=== PATIENT | female | born 1960 | race Caucasian/White ===

== ENCOUNTER → 2018-12-09 13:17 | Outpatient (CLI) | payer OTHER, SELFPAY ==
[2018-12-09 08:22] VITALS: BMI 33.7
[2018-12-14 13:48] LABS: HPV APTIMA, High Risk Negative (Negative)
== END ==
PROVIDERS: Family Provider Family Medicine; PCP Family Medicine; Referring Provider Nurse Practitioner Women's Health; Visit Provider Nurse Practitioner Women's Health
DX: R87.619 Unspecified abnormal cytological findings in specimens from cervix uteri (principal); B97.7 Papillomavirus as the cause of diseases classified elsewhere
CPT/HCPCS: 87624; 88175; G0145

== ENCOUNTER → 2018-12-29 07:38 | Outpatient (CLI) | payer OTHER, SELFPAY ==
[2018-12-09 08:22] VITALS: BMI 33.7
--- NOTE | 2018-12-29 07:00 | BI_ITS ---
MAMMOGRAPHY - BILATERAL SCREENING REASON FOR EXAM: Female, 58 years old. Routine annual screening examination. PERTINENT HISTORY: Non-contributory. TECHNIQUE: Digital bilateral breast ibrahima (3D mammographic acquisition) in the CC and MLO projections. 2-D mediolateral oblique (MLO) and craniocaudad (CC) views of both breasts were obtained. CAD: Full Field Digital Mammography with Computer Added Detection was performed. COMPARISON: Comparison is made with prior outside examination dated December 15, 2016. FINDINGS: Breast Composition: The breasts are heterogeneously dense, which may obscure small masses. There are no dominant masses or suspicious calcifications. A tissue clip marker is seen in the slightly inferior retroareolar region of the left breast. Stable small benign-appearing bilateral axillary lymph nodes. No other significant abnormalities are identified. There has been no significant change since the prior study. BI/SCREEN MAMM (CAD) W/IBRAHIMA BILAT IMPRESSION: Stable bilateral screening mammogram. Yearly follow-up mammogram recommended. (A) ASSESSMENT CATEGORY: BIRADS Category 2: Benign. A letter regarding these results will be sent to the patient by the facility within 30 days. Approximately 10% of breast cancers are not detected by mammography. A normal mammogram should not delay biopsy of a clinically suspicious abnormality. [id number] Electronically Signed: Casey Trent, at 12:58 EDT , Service support ,
== END ==
PROVIDERS: Family Provider Family Medicine; PCP Family Medicine; Referring Provider Nurse Practitioner Women's Health; Visit Provider Nurse Practitioner Women's Health
DX: Z12.31 Encounter for screening mammogram for malignant neoplasm of breast (principal)
CPT/HCPCS: 77063; 77067

== ENCOUNTER 2019-09-08 12:30 | Emergency (ER) | payer OTHER, SELFPAY ==
[2018-12-09 08:22] VITALS: BMI 33.7
[2019-09-08 12:31] VITALS: BP 147/97; PULSE 69; RESP 16; TEMP 36.1; O2SAT 98; BMI 33.6
--- NOTE | 2019-09-08 12:46 | EKG12_ITS ---
Test Reason : DIZZINESS Blood Pressure : / mmHG Vent. Rate : 068 BPM Atrial Rate : 068 BPM P-R Int : 204 ms QRS Dur : 084 ms QT Int : 466 ms P-R-T Axes : 069 044 053 degrees QTc Int : 495 ms Normal sinus rhythm Normal ECG Confirmed by JOSS ANDUJAR, MARINA ([id number]), map editor JEN URIBE ([id number]) on 09/13/2019 11:13:56 AM Referred By: YAYA Confirmed By:MARINA COREAS MD
--- NOTE | 2019-09-08 12:46 | CT_ITS ---
STUDY: CT BRAIN WITHOUT CONTRAST REASON FOR EXAM: Female, 59 years old. DIZZINESS/DIAPHORESIS/N/V RADIATION DOSAGE (If Supplied By Facility): CTDIvol = ( 44.99 ) mGy, DLP = ( 829.85 ) mGycm TECHNIQUE: Transaxial CT imaging of the brain was performed without administration of intravenous contrast material. Individualized dose optimization techniques were used for this CT. COMPARISON: 2010 FINDINGS: Normal soft tissue structures. Normal calvarium. Normal size ventricles and extra-axial spaces for the patient''s age. Normal white matter tracts of the cerebral hemispheres. Normal basal ganglia and thalami. Normal brainstem. Normal cerebellum. There is no intracranial hemorrhage. There are no findings of an acute ischemic infarction. Normal visualized paranasal sinuses. CT/Brain/Head without Contrast IMPRESSION: Chronic involutional changes of the brain. No acute hemorrhage Electronically Signed: Landry Alaniz MD at 13:53 EDT , Service support ,
--- NOTE | 2019-09-08 12:59 | ED.VIS.GEN ---
History of Present Illness Chief Complaint: Dizziness Informant: Patient Onset: Today Current Severity: Mild Maximum Severity: Mild Narrative: Patient presents with spinning sensation that began suddenly while she was at work. She has no past history she is on no medications other than Prozac she woke up feeling fine went to work feeling fine, no exposures to coronavirus, she works in housekeeping type activities no new exposures nothing really happened at work to trigger this the spinning sensation persisted she began vomiting and she came in for evaluation, No fever no cough no headache no numbness weakness paresthesias no loss of neurologic or functional ability Past Medical History - Allergies and Home Meds Allergies/Adverse Reactions: Allergies No Known Allergies Allergy (Verified 09/08/19 12:31) Primary Care Physician: Chirag Cam III, MD [Primary Care Provider] - Past Medical History: None Surgical History: no surgical history Smoking Status: Never smoker Review of Systems General: Denies: Chills, Fever, Sweats Eyes: Denies: Visual changes - bilaterally, Diplopia ENT: Denies: Rhinorrhea, Sore throat Cardiovascular: Denies: Chest pain, Palpitations Respiratory: Denies: Dyspnea, Cough, Dyspnea on exertion Gastrointestinal: Reports: Vomiting. Denies: Abdominal pain, Nausea, Diarrhea, Melena, Hematochezia Genitourinary: Denies: Dysuria, Hematuria, Frequency Musculoskeletal: Denies: Back pain, Extremity Pain Skin: Denies: Rash, Wounds Neurological: Reports: -. Denies: Headache, Weakness, Numbness Physical Exam Vital Signs/Narrative: Vital Signs Temp Pulse Resp BP Pulse Ox 09/08/19 12:31 96.9 F L 69 16 147/97 H 98 General: Well nourished, Well developed, No Acute Distress Head: Normocephalic, Atraumatic Eyes: Perrl, EOMI ENT: Moist mucous membranes, No rhinorrhea Neck: Supple, Nontender Cardiovascular: Regular rate, Regular rhythm, No murmurs Respiratory: No distress, CTA bilaterally, Chest nontender Abdomen: Soft, Nontender, Nondistended, Normal bowel sounds Back: Nontender, Normal Inspection Extremities: Nontender, No edema Skin: Normal color, No rash Neurological: Alert, Oriented x3, Cranial nerves II-XII grossly intact, Normal Strength, Normal Sensation Psychological: Normal affect, Normal Mood Diagnostic/Tx/Re-eval - Medical Decision Making Patient is awake and alert her vital signs are unremarkable her neurologic exam is unremarkable NIH is 0 she has no nystagmus moving her head left or right causes her to have more spinning sensation The patient's EKG shows a sinus rhythm rate of 70 no acute injury pattern appreciated, ED screening evaluation labs head CT all generally unremarkable see those reports nothing acute Reevaluation she states she feels much better she is no longer dizzy she can move her head and her body without a sense of spinning or dizziness we discussed a wide differential we discussed inpatient versus outpatient management she wants to go home she understands she will require additional studies as an outpatient further management options that she will obtain from outpatient providers and return for change in symptoms, we will discharge her on Antivert Home stable Impression final dizziness resolved etiology unclear ED Disposition - Plan for ED Patient: Instructions: ED Dizziness UKO Prescriptions: Meclizine HCl [Antivert] 25 mg PO 4X/DAY PRN PRN #20 tab PRN Reason: Dizziness Prescription Printed Referrals: Chirag Cam III, MD [Primary Care Provider] -
[2019-09-08 13:08] LABS: Absolute Lymphocyte Count 1.54 X10^3/uL (0.83-4.51); Absolute Neutrophil Count 4.1 X10^3/uL (2.0-7.7); Basophil# 0.05 X10^3/uL; Basophil% 0.8 % (0-1); Eosinophil# 0.16 X10^3/uL; Eosinophils% 2.5 % (0-5); Hematocrit 45.1 % (37-47); Hemoglobin 14.4 g/dL (12.0-15.0); Lymphocyte # 1.54 X10^3/ul (4.0); Mean Corp Hgb Conc 31.9 g/dL (32-36); Mean Corpuscular Hgb 29.1 pg (27.0-32.0); Mean Corpuscular Volume 91.3 fL (81-99); Mean Platelet Vol. 9.7 fl (6.2-12.0); Monocyte# 0.49 X10^3/uL; Monocyte% 7.6 % (0-10); NRBC Flagged by Analyzer 0 % (0-5); Neutrophil # 4.14 X10^3/uL (2.7-7.7); Neutrophil % 64.6 % (47-70); Platelet Count 250 K/mm3 (150-450); RBC Distribution Width CV 12.9 % (11.6-14.6); RBC Distribution Width SD 42.9 fl (35.1-43.9); Red Blood Count 4.94 M/mm3 (4.2-5.4); White Blood Count 6.4 K/mm3 (4.4-11.0)
[2019-09-08] MEDS: 0.9% Normal Saline 1,000 ML 150 ML IV (13:10)
[2019-09-08] MEDS: LORazepam 2 MG/ML Syringe 1 MG IV (13:10)
[2019-09-08] MEDS: Ondansetron 4 MG/2 ML Vial IV (13:10)
[2019-09-08 13:12] VITALS: BP 121/64; PULSE 55; RESP 15; O2SAT 100
[2019-09-08 13:20] LABS: Anion Gap 7 (5-15); BUN 19 mg/dL (7-18); BUN/Creat Ratio 21.7 RATIO (10-20); Calcium,Total 9.2 mg/dL (8.5-10.1); Chloride 104 mmol/L (98-107); Creatinine, Serum 0.88 mg/dL (0.55-1.02); EST Glomerular Filtration Rate 70 mL/min (>60); Est Glom Filt Rate - Afr Amer 85 mL/min (>60); Estimated Creatinine Clearance 56.24 ml/min; Glucose 165 mg/dL (74-106); Potassium 3.6 mmol/L (3.5-5.1); Sodium Level 140 mmol/L (136-145)
--- NOTE | 2019-09-08 13:21 | RAD_ITS ---
STUDY: X-RAY CHEST REASON FOR EXAM: Female, 59 years old. CHEST PAIN, DIZZINESS, DIAPHORETIC TECHNIQUE: Single AP portable view of the chest. COMPARISON: None. FINDINGS: EKG leads overlie the chest The lungs are clear and expanded. There is no demonstrated pleural abnormality. Normal size heart. Normal mediastinum and graham. Normal visualized pulmonary arteries. Normal visualized aortic arch and descending thoracic aorta. Normal visualized thoracic spine. Normal visualized ribs, clavicles, and shoulders. There is no demonstrated abnormality of the visualized soft tissue structures of the upper abdomen. RAD/Chest 1 View (Portable) IMPRESSION: No acute pulmonary process Electronically Signed: Landry Alaniz MD at 13:36 EDT , Service support ,
[2019-09-08 15:32] VITALS: BP 128/82; PULSE 64; RESP 16; O2SAT 99
--- NOTE | 2019-09-08 15:33 | ED.RN ---
REVIEWED D/C INSTRUCTIONS, FOLLOW UP CARE, PRESCRIPTION, AND S/S THAT WOULD WARRANT A RETURN TO THE ED WITH PT. PT VERBALIZED AN UNDERSTANDING AND DENIES FURTHER QUESTIONS FOR THIS RN. PT SKIN P/W/D, RESP EVEN AND UNLABORED, PT A&O X 3, NO DISTRESS NOTED. PT AMBULATED OUT OF ED, GAIT STEADY.
== END 2019-09-08 15:34 | disposition home or self-care (01) ==
LOC: ED 13:56
PROVIDERS: Emergency Provider Emergency Medicine; PCP Family Medicine
DX: R42 Dizziness and giddiness (principal); Z79.899 Other long term (current) drug therapy
CPT/HCPCS: 70450; 71045; 80048; 84484; 85025; 93005; 96361; 96374; 96375; 99284; J7030; J2405

== ENCOUNTER → 2020-01-09 13:43 | Outpatient (CLI) | payer OTHER, SELFPAY ==
[2020-01-09 13:10] VITALS: BMI 34.0
--- NOTE | 2020-01-09 13:44 | BI_ITS ---
MAMMOGRAPHY - BILATERAL SCREENING REASON FOR EXAM: Female, 59 years old. Routine annual screening examination. PERTINENT HISTORY: Non-contributory. TECHNIQUE: Digital bilateral breast ibrahima (3D mammographic acquisition) in the CC and MLO projections. 2-D mediolateral oblique (MLO) and craniocaudad (CC) views of both breasts were obtained. CAD: Full Field Digital Mammography with Computer Added Detection was performed. COMPARISON: Comparison is made with prior study dated 12/29/2018. FINDINGS: Breast Composition: The breasts are heterogeneously dense, which may obscure small masses. There are no dominant masses or suspicious calcifications. Stable small benign appearing bilateral axillary lymph nodes. A tissue clip marker is once again seen in the slightly inferior retroareolar region of the left breast. No other significant abnormalities are identified. BI/SCREEN MAMM (CAD) W/IBRAHIMA BILAT IMPRESSION: Stable bilateral screening mammogram. Yearly follow-up mammogram recommended. (A) ASSESSMENT CATEGORY: BIRADS Category 2: Benign. A letter regarding these results will be sent to the patient by the facility within 30 days. Approximately 10% of breast cancers are not detected by mammography. A normal mammogram should not delay biopsy of a clinically suspicious abnormality. [id number] Electronically Signed: Casey Trent, at 15:12 EDT , Service support ,
== END ==
PROVIDERS: PCP Family Medicine; Referring Provider Obstetrics & Gynecology; Visit Provider Obstetrics & Gynecology
DX: Z12.31 Encounter for screening mammogram for malignant neoplasm of breast (principal)
CPT/HCPCS: 77063; 77067

== ENCOUNTER 2020-02-19 11:21 | Emergency (ER) | payer OTHER, SELFPAY ==
[2020-01-09 13:10] VITALS: BMI 34.0
[2020-02-19 11:22] VITALS: BP 147/97; PULSE 72; RESP 16; TEMP 36.4; O2SAT 100; BMI 34.9
--- NOTE | 2020-02-19 11:34 | RAD_ITS ---
STUDY: X-RAY - UNILATERAL RIBS ( RIGHT ) WITH CHEST REASON FOR EXAM: Female, 59 years old. Right sided pain TECHNIQUE - RIBS: 5 view(s) of the ribs. TECHNIQUE - CHEST: Frontal view COMPARISON: 09/08/19 FINDINGS - RIBS: There are no displaced rib fractures identified. FINDINGS - CHEST: The lungs are clear. There are no pleural effusions. There is no pneumothorax. The heart is normal in size. RAD/Ribs Uni Min 3V w/PA Chest IMPRESSION: RIBS: No displaced rib fracture identified. CHEST: Clear lungs. Electronically Signed: Umair Grant, at 12:34 EST Tel , Service support ,
--- NOTE | 2020-02-19 11:34 | US_ITS ---
STUDY: ABDOMINAL ULTRASOUND - RIGHT UPPER QUADRANT REASON FOR VISIT: Female, 59 years old. Pain TECHNIQUE: Ultrasound evaluation of the right upper quadrant was performed with real-time and static pereyra-scale imaging. TECHNICAL QUALITY: Limited by bowel gas. COMPARISON: None. FINDINGS: Liver: The liver measures 12.4 cm. There is normal echogenicity of the liver. The bile ducts are within normal limits. There is hepatic color flow. The direction of portal flow is hepatopetal. There is a 7.5 x 5.4 x 5.1 cm heterogeneous lesion in the right lobe of the liver. Gallbladder: Normal distended gallbladder. The gallbladder wall measures 1 mm. There is a negative sonographic Galvan''s sign. There is no pericholecystic fluid. There are no gallstones. Common Bile Duct (C.B.D.): The common bile duct measures 10 mm. There are no ductal stones identified. Pancreas: Normal size of the head, body and tail of the pancreas. There is normal echogenicity of the pancreas. There is no demonstrated pancreatic mass or cyst. Right Kidney: Normal size of the right kidney. The right kidney measures 9.4 cm. Normal renal cortex. There is no demonstrated renal mass or cyst. There is no right hydronephrosis. US/Gallbladder IMPRESSION: 7.5 x 5.4 x 5.1 cm heterogeneous lesion in the right lobe of the liver. A liver protocol CT or MRI is recommended. Normal sonographic appearance of the gallbladder. Dilated common bile duct. No ductal stones are identified. Electronically Signed: Umair Grant, at 13:04 EST Tel , Service support ,
--- NOTE | 2020-02-19 11:36 | ED.DCSUM_ITS ---
- ER Visit Summary Date of Service: 02/19/20 Chief Complaint: Pain under right ribs History of Present Illness: The patient is a 59 F presenting with pain under her right ribs. She states that this has been ongoing for the past 2 months. She states she fell in December and is unsure if this is related. She states occasionally the pain is worsened when she reaches for things or moves in different positions. She states it is also worsened when she eats. She denies nausea vomiting. Denies fever. Denies other complaints. Physical Examination: Vitals are stable. Patient is afebrile. Alert no acute distress. HEENT exam is unremarkable. Neck is supple. Lungs are clear and equal bilaterally. Right lower chest wall tenderness with no crepitus Heart is regular rate and rhythm. Abdomen is soft right upper quadrant tenderness with no guarding or rebound Extremities are unremarkable. Skin is warm and dry. No focal neurologic deficit. Remainder of exam is unremarkable. Emergency Department Course and Treatment: CBC, chemistries unremarkable. Liver lipase are normal. Right rib x-ray shows RIBS: No displaced rib fracture identified. CHEST: Clear lungs. Gallbladder ultrasound shows 7.5 x 5.4 x 5.1 cm heterogeneous lesion in the right lobe of the liver. A liver protocol CT or MRI is recommended. Normal sonographic appearance of the gallbladder. Dilated common bile duct. No ductal stones are identified. Patient is advised of these findings. She has a known hemangioma of her liver and has a specialist at [facility] for this. She is advised to follow-up with her specialist at [facility]. Advised return to ED for worsening complaints. Disposition: Discharge home Impression: Right upper quadrant abdominal pain This note was generated with [employer] dictation software. It may contain incorrect words, spelling, and punctuation that were not noted in review of the chart prior to signing ED Disposition - Plan for ED Patient: Instructions: ED Unknown Causes of Abdominal ... Referrals: Chirag Cam III, MD [Primary Care Provider] -
[2020-02-19 12:00] LABS: Absolute Lymphocyte Count 1.56 X10^3/uL (0.83-4.51); Absolute Neutrophil Count 2.9 X10^3/uL (2.0-7.7); Basophil# 0.05 X10^3/uL; Eosinophil# 0.17 X10^3/uL; Eosinophils% 3.3 % (0-5); Hematocrit 44.7 % (37-47); Hemoglobin 14.4 g/dL (12.0-15.0); Lymphocyte # 1.56 X10^3/ul (4.0); Lymphocyte % 30.2 % (19-41); Mean Corp Hgb Conc 32.2 g/dL (32-36); Mean Corpuscular Hgb 28.6 pg (27.0-32.0); Mean Corpuscular Volume 88.9 fL (81-99); Mean Platelet Vol. 9.3 fl (6.2-12.0); Monocyte# 0.48 X10^3/uL; Monocyte% 9.3 % (0-10); NRBC Flagged by Analyzer 0 % (0-5); Neutrophil # 2.88 X10^3/uL (2.7-7.7); Neutrophil % 55.8 % (47-70); Platelet Count 269 K/mm3 (150-450); RBC Distribution Width CV 13.2 % (11.6-14.6); RBC Distribution Width SD 43.2 fl (35.1-43.9); Red Blood Count 5.03 M/mm3 (4.2-5.4); White Blood Count 5.2 K/mm3 (4.4-11.0)
[2020-02-19 12:10] LABS: ALB/GLOB Ratio 1.2 RATIO (0.9-2.4); AST(SGOT) 16 U/L (15-37); Alanine Aminotransfer ALT/SGPT 22 U/L (13-56); Alkaline Phosphatase 87 U/L (45-117); Anion Gap 7 (5-15); BUN 16 mg/dL (7-18); BUN/Creat Ratio 16.8 RATIO (10-20); Calcium,Total 8.9 mg/dL (8.5-10.1); Chloride 106 mmol/L (98-107); Creatinine, Serum 0.95 mg/dL (0.55-1.02); EST Glomerular Filtration Rate 64 mL/min (>60); Est Glom Filt Rate - Afr Amer 77 mL/min (>60); Estimated Creatinine Clearance 52.09 ml/min; Globulin 3.4 g/dL (2.2-4.2); Glucose 90 mg/dL (74-106); Lipase 167 U/L (73-393); Potassium 3.3 mmol/L (3.5-5.1); Protein, Total 7.4 g/dL (6.4-8.2); Sodium Level 142 mmol/L (136-145)
--- NOTE | 2020-02-19 13:28 | ED.DEP ---
ED Disposition - Plan for ED Patient: Instructions: ED Unknown Causes of Abdominal ... Referrals: Chirag Cam III, MD [Primary Care Provider] -
--- NOTE | 2020-02-19 13:36 | ED.DEP ---
ED Disposition - Plan for ED Patient: Instructions: ED Abdominal Pain Unkn Cause Fem Referrals: Chirag Cam III, MD [Primary Care Provider] -
[2020-02-19 13:44] VITALS: BP 130/90; PULSE 87; RESP 16; O2SAT 99
== END 2020-02-19 13:45 | disposition home or self-care (01) ==
LOC: ED 12:57
PROVIDERS: Emergency Provider Emergency Medicine; PCP Family Medicine
DX: R10.11 Right upper quadrant pain (principal); D18.03 Hemangioma of intra-abdominal structures; Z79.899 Other long term (current) drug therapy
CPT/HCPCS: 71101; 76705; 80053; 83690; 85025; 99283; A4216

== ENCOUNTER 2020-03-12 13:50 | Outpatient (RCR) | payer OTHER, SELFPAY | END 2020-03-15 23:59 | LOC: LABSPEC 13:50 | PROVIDERS: PCP Family Medicine; Referring Provider Family Medicine; Visit Provider Family Medicine | DX: Z20.828 Contact with and (suspected) exposure to other viral communicable diseases (principal) | CPT/HCPCS: 87635; U0003 ==

== ENCOUNTER → 2021-01-17 08:57 | Outpatient (CLI) | payer OTHER, SELFPAY ==
--- NOTE | 2021-01-17 09:01 | BI_ITS ---
MAMMOGRAPHY - BILATERAL SCREENING REASON FOR EXAM: Female, 60 years old. Routine annual screening examination. PERTINENT HISTORY: Non-contributory. TECHNIQUE: Digital bilateral breast ibrahima (3D mammographic acquisition) in the CC and MLO projections. 2-D mediolateral oblique (MLO) and craniocaudad (CC) views of both breasts were obtained. CAD: Full Field Digital Mammography with Computer Added Detection was performed. COMPARISON: Comparison is made with prior study dated 01/09/2020 and 12/29/2018. FINDINGS: Breast Composition: The breasts are heterogeneously dense, which may obscure small masses. There are no dominant masses or suspicious calcifications. Stable small benign appearing bilateral axillary lymph nodes. No other significant abnormalities are identified. There has been no significant change since the prior study. BI/SCRN MAMM (CAD)W/IBRAHIMA BILAT IMPRESSION: Stable bilateral screening mammogram. Yearly follow-up mammogram recommended. (A) ASSESSMENT CATEGORY: BIRADS Category 2: Benign. A letter regarding these results will be sent to the patient by the facility within 30 days. Approximately 10% of breast cancers are not detected by mammography. A normal mammogram should not delay biopsy of a clinically suspicious abnormality. [id number] Electronically Signed: Casey Trent MD at 10:07 EDT , Service support ,
[2021-01-22 12:05] LABS: HPV APTIMA, High Risk Negative (Negative)
== END ==
PROVIDERS: PCP Family Medicine; Referring Provider Obstetrics & Gynecology; Visit Provider Obstetrics & Gynecology
DX: Z12.31 Encounter for screening mammogram for malignant neoplasm of breast (principal); Z78.0 Asymptomatic menopausal state
CPT/HCPCS: 77063; 77067; 87624; 88175; G0145

== ENCOUNTER 2021-05-03 14:45 | Observation (INO) | payer OTHER, SELFPAY ==
--- NOTE | 2021-04-30 13:34 | EKG12_ITS ---
Test Reason : PREOP Blood Pressure : / mmHG Vent. Rate : 075 BPM Atrial Rate : 075 BPM P-R Int : 188 ms QRS Dur : 074 ms QT Int : 378 ms P-R-T Axes : 065 031 068 degrees QTc Int : 422 ms Normal sinus rhythm Poor R wave progression Nonspecific T wave abnormality Confirmed by JOSS ANDUJAR, MARINA ([id number]), editor publications JEN URIBE ([id number]) on 05/01/2021 11:48:50 AM Referred By: Ashley Boykin Confirmed By:MARINA COREAS MD
[2021-04-30 15:19] LABS: Hematocrit 41.5 % (37-47); Hemoglobin 13.5 g/dL (12.0-15.0); Mean Corp Hgb Conc 32.5 g/dL (32-36); Mean Corpuscular Volume 89.1 fL (81-99); Mean Platelet Vol. 9.8 fl (6.2-12.0); Platelet Count 273 K/mm3 (150-450); RBC Distribution Width SD 45.1 fl (35.1-43.9); Red Blood Count 4.66 M/mm3 (4.2-5.4); White Blood Count 5.7 K/mm3 (4.4-11.0)
[2021-04-30 16:14] LABS: Magnesium 2.4 mg/dL (1.6-2.6)
[2021-04-30 16:16] LABS: ALB/GLOB Ratio 1.2 RATIO (0.9-2.4); AST(SGOT) 24 U/L (15-37); Alanine Aminotransfer ALT/SGPT 19 U/L (13-56); Albumin, Serum 3.8 g/dL (3.2-5.0); Alkaline Phosphatase 71 U/L (45-117); Anion Gap 4 (5-15); BUN 14 mg/dL (7-18); BUN/Creat Ratio 16.1 RATIO (10-20); Calcium,Total 8.9 mg/dL (8.5-10.1); Chloride 109 mmol/L (98-107); Creatinine, Serum 0.87 mg/dL (0.55-1.02); EST Glomerular Filtration Rate 70 mL/min (>60); Est Glom Filt Rate - Afr Amer 85 mL/min (>60); Globulin 3.2 g/dL (2.2-4.2); Glucose 79 mg/dL (74-106); Potassium 3.6 mmol/L (3.5-5.1); Sodium Level 141 mmol/L (136-145)
[2021-05-03] VITALS (15 sets, daily range): BP systolic 80–155; BP diastolic 49–86; PULSE 56–84; RESP 14–20; TEMP 36–37; O2SAT 95–100; BMI 33.8
[2021-05-03] MEDS: Lactated Ringers 1,000 ML 40 ML IV (06:05)
[2021-05-03] MEDS: dexAMETHasone 10 MG/ML Vial 8 MG IV (06:05)
[2021-05-03] MEDS: Enoxaparin 40 MG/0.4 ML Syringe SC (06:15)
[2021-05-03] MEDS: Acetaminophen 500 MG Tablet 1000 MG PO ×2 (06:27→22:14)
[2021-05-03] MEDS: Celecoxib 200 MG Capsule 400 MG PO (06:28)
[2021-05-03] MEDS: Gabapentin 600 MG Tablet PO (06:28)
--- NOTE | 2021-05-03 07:30 | HYST_PTH ---
PATIENT: GEORGE BURLESON LOC: [facility]3 U#:[id number] AGE/SX: 60/F ROOM: MS318 RE05/03/[address]: Dr. Ashley Boykin MD : 1960 BED: 1 DIS: 05/04/2021 SPEC #: [id number] RECD: 05/03/21 11:32 STATUS: LIYAH ZACARIAS #: [id number] CARA: 05/03/21 07:[address]: Ashley Boykin DEPT: SURGICAL PATHOLOGY RECD BY: Kavon Russ ENTERED: 05/03/21 13:09 SP TYPE: HYSTERECT OTHR DR: Dr. Julisa Guerra MD No Primary Care Phys Tissues: A - Uterus, NOS B - CYST Procedures: Surgery Specimen Level IV Surgery Specimen Level V HEADER OPERATION: ERAS, vaginal hysterectomy, right salpingectomy PRE-OP DIAGNOSIS: Cystocele and rectocele with incomplete uterovaginal prolapse TISSUE SUBMITTED: A ? Cervix, uterus, right fallopian tube, B ? Periurethral cyst MICROSCOPIC DIAGNOSIS A. Cervix, uterus, right fallopian tube, vaginal hysterectomy and right salpingectomy: Cervix ? mild chronic cystic cervicitis. Endometrium ? proliferative endometrium with focal cystic changes. Myometrium ? leiomyomas (largest measuring 5 cm in greatest dimension). - Adenomyosis. Right fallopian tube - no pathologic diagnosis. B. Periurethral cyst: A piece of fibrovascular tissue. See comment. SJ:mega 05/07/2021 COMMENT B. No obvious cyst is identified. MICROSCOPIC DESCRIPTION Slides are reviewed. GROSS DESCRIPTION A - Received in fixative is one container labeled with the patient's name and designated cervix, uterus, right fallopian tube. The specimen consists of a hysterectomy specimen consisting of uterus with cervix, two detached nodular masses and detached fallopian tube. The uterus with cervix and detached nodular masses weigh in aggregate 189 gm. The uterus with cervix measures 9.5 x 5 x 6.5 cm. The anterior and posterior uterine wall shows a focal area of defect most likely site of detached nodular masses. The serosal surface is mason, glistening. The ectocervical mucosa is unremarkable. The external os is circular in contour. The endocervical canal measures 3.5 cm in length and the endocervical mucosa is mason, glistening without any mass lesion. The triangular endometrial cavity measures 4.5 cm in length and 2 cm in width. The endometrium is mason, glistening without any mass lesion and measures 0.1 cm in thickness. Sections of the uterine wall reveal two ill-defined nodular masses with the larger one measuring 1.5 cm in greatest dimension. The detached nodular masses measures 5 x 4.5 x 4 cm and 5 x 4.5 x 3.5 cm. Sections of these masses reveal mason whorled cut surfaces without areas of hemorrhage, necrosis or cystic degeneration. The uninvolved uterine wall measures up to 3 cm in thickness. One of the nodular masses display focally calcified cut surfaces. The detached fallopian tube measures 4 cm in length and 0.5 cm in diameter. Two Filshie clips are present and appear intact. A detached piece of fimbrial end is also noted measuring 1 x 0.5 x 0.2 cm. Map Colorer sections are submitted in ten cassettes as follows: 1 - anterior cervix, 2 - posterior cervix, 3 & 4 - anterior uterine wall, 5 & 6 - posterior uterine wall, 7 - ill-defined nodular masses, 8 & 9 - detached nodular masses with each cassette containing one nodular mass, 10 - fallopian tube. B - Received in fixative is one container labeled with the patient's name and designated periurethral cyst. The specimen consists of a piece of mason-pink soft tissue measuring 1 x 0.5 x 0.3 cm. The entire specimen is submitted in one cassette. / SJ:meag 05/03/2021 TC:1 CPT: 66426, 98855
--- NOTE | 2021-05-03 07:31 | HP.PCM.OB_ITS ---
HPI - General HPI Narrative GEORGE BURLESON, is a 60 F who presents for hysterectomy for pelvic organ prolapse, planned combo case with Dr Guerra. she has failed PFPT in the past and a pessary and is ready to proceed with surgical management. [facility] Medical History (Updated 05/03/21 @ 07:[address] Ashley Boykin MD) Abnormal Pap smear of cervix Anxiety Arthritis Back pain Bladder disease COVID Depression Diverticulitis Hypertension Leg cramps Non-smoker Post-menopausal Shortness of breath on exertion Wears glasses Home Medications fluoxetine 20 mg PO DAILY 12/26/16 [History Last Taken Unknown] hydrochlorothiazide 12.5 mg PO DAILY 12/26/16 [History Last Taken Unknown] estradiol [Estrace] 0.1 appful VAGINAL MOWEFR 04/26/21 [History Last Taken Unknown] Allergy/AdvReac Type Severity Reaction Status Date / Time No Known Allergies Allergy Verified 05/03/21 06:18 Family History Father Cancer blood Uncle Cancer leukemia Surgical History (Updated 04/26/21 @ 13:05 by Alicia Crowley) Hx of colectomy Hx of colonoscopy Trigger finger Social History (Updated 01/17/21 @ 08:25 by Vivi Moreno) Smoking Status: Never smoker alcohol intake: never substance use type: does not use caffeine: Yes what type of physical activity do you participate in: walking frequency: 3-4 times per week seatbelt use: always do you feel safe at home: Yes additional social history: Danilo- in August 2020 at Hospice Patient works at [employer] History 3 Elective abortions Hx Para 3 Spontaneous abortions Hx # Term Pregnancies Ectopic pregnancies Hx # Pregnancies Multiple births 1 # of living children Past Pregnancies Del. Date Name GA/Weeks Outcome Route Bth Weight Gen Labor Lgth Anesthesia Del Locatn Provider FOB Unknown 1985 Gaby Unknown 1989 Bela LORENZO Review of Systems ROS Unobtainable: due to mental status and other Constitutional Constitutional: Reports systems reviewed and no addt'l complaints, except as documented; Denies as per HPI, change in weight, fatigue, fever(s), malaise, weakness or other Eyes Eyes: Reports systems reviewed and no addt'l complaints, except as documented; Denies as per HPI, change in vision or other ENT HEENT: Reports systems reviewed and no addt'l complaints, except as documented Respiratory/Chest Respiratory/Chest: Reports systems reviewed and no addt'l complaints, except as documented Gastrointestinal Gastrointestinal: Reports systems reviewed and no addt'l complaints, except as documented and as per HPI Genitourinary Genitourinary: Reports as per HPI Musculoskeletal Musculoskeletal: Reports systems reviewed and no addt'l complaints, except as documented Neurologic Neurologic: Reports systems reviewed and no addt'l complaints, except as documented Psychiatric Psychiatric: Reports systems reviewed and no addt'l complaints, except as documented Endocrine Endocrinology: Reports systems reviewed and no addt'l complaints, except as documented Hematologic/Lymphatic Hematologic/Lymphatic: Reports systems reviewed and no addt'l complaints, except as documented Vital Signs Vital Signs Vital Signs: 05/03/21 06:05 Temperature 97.8 F Temperature Source Temporal Pulse Rate 74 Respiratory Rate 18 Respiratory Pattern Normal Blood Pressure 129/81 H Blood Pressure Mean 97 Blood Pressure Source Monitor Blood Pressure Position Sitting Blood Pressure Location Right Arm Pulse Ox 100 Oxygen Delivery Method Room Air Weight Weight: 197 lb 5.019 oz Body Mass Index (BMI) 33.8 Physical Exam Const alert, oriented x3 and no apparent distress HEENT normocephalic Head and Scalp: atraumatic Eyes EOMs intact bilaterally and conjunctivae normal Neck full ROM, no lymphadenopathy, supple and thyroid normal General: trachea midline Lymph Lymphatic: no lymphadenopathy noted Resp normal respiratory effort, no retractions, no use of accessory muscles and clear to auscultation bilaterally Cardio regular rhythm GI normal to inspection, nondistended, normoactive bowel sounds, soft to palpation, non-distended and no masses Inspection: Negative for abdominal distention Back/Spine no CVA tenderness Extremity normal to inspection Skin no rashes or lesions noted Neuro moves all extremities and deep tendon reflexes 2+ bilaterally Psych mental status grossly normal Labs Labs Labs: Blood Type O POSITIVE Antibody Screen NEGATIVE Hct 41.5 % (37-47) Hgb 13.5 g/dL (12.0-15.0) Pap Smear Positive Miscellaneous Test Assessment & Plan (1) Cystocele and rectocele with incomplete uterovaginal prolapse: COMMENT: discussed PFPT, pessary, and plan for surgery TVHBSO combo case with Charlie. PLAN: After discussing the patient's diagnosis and treatment plan options, patient wishes to proceed with surgical management. I have discussed with the patient the risks, benefits, and alternatives of the procedure which include but are not limited to risks of anesthesia, bleeding, infection, possible damage to bowel, bladder, or surrounding vasculature which could lead to additional surgery to evaluate any complications. Patient agrees to procedure and wishes to proceed. ACOG/uptodate references given for additional information regarding procedure.
[2021-05-03] MEDS: Cefazolin 2 GM in 0.9% Normal Saline 100 ML IV (07:34)
--- NOTE | 2021-05-03 07:38 | OP.PCM_ITS ---
Problems Associated Problem List Diagnoses (1) Cystocele and rectocele with incomplete uterovaginal prolapse: Report of Operation Date of Procedure: 05/03/21 Pre-Operative Diagnosis: pelvic organ prolapse Post-Operative Diagnosis: same Surgery/Procedure Performed:: tvh rs Description of Surgical Findings:: left adnexal adhesions minimal cul de sac left sided adhesions physical meteorologist: Norberto Leos Type of Anesthesia: General Specimen's removed: uterus, tube right Drains: valentin Estimated Blood Loss (mL): 100 Fluids Replaced: crystalloid Description of Procedure: Patient was taken to the operating room and was placed under general anesthesia was prepped and draped in normal sterile fashion in the dorsal lithotomy position. Preoperative antibiotics and SCDs and Valentin catheter was placed inside the bladder. Weighted speculum was placed in the vagina and the anterior and posterior lip of the cervix was grasped with 2 Usmmer clamps and circumferentially injected with dilute vasopressin. A circumferential incision was made with a scalpel and the posterior cul-de-sac was entered into sharply and a longneck speculum was placed. small filmy adhesions encountered and taken down bluntly and sharply on the left side of the cul de sac without complication. The anterior cul-de-sac was also dissected down and entered into sharply and the uterosacral ligaments were clamped cut and suture ligated bilaterally followed by the cardinal ligaments which were Clamped cut and suture ligated bilaterally with 0 Monocryl. The uterus serially descended and progressive bites were taken bilaterally up to the level of the utero-ovarian ligament bilaterally which was clamped transected and double ligated with 0 Monocryl suture and 0 Vicryl free tie. multiple fiboirds encountered but were small and removed along with uterus. Bilateral fallopian tubes and ovaries were visualized and noted be within normal limits although the left tube and ovary were encased in dense adhesions on the left side so were not removed. the right ovary was outside of the safe reach of the operative field and also left in situ. the right tube transected with the eugenia clamp and tied off with an o vicryl tie. Excellent hemostasis was noted. The vagina was closed with [id number] 0 Vicryl pop offs including the posterior and anterior peritoneum in the reapproximation. Excellent hemostasis was noted. Then Dr. Guerra began her portion of the procedure. Grafts/Implants Used: none Complications none Admit VTE Documentation VTE Present on Admission: No VTE Mechan Device Prophylaxis: SCD's VTE Pharm Prophylaxis ordered?: Yes Multi Select Codes Urinary/Genital Urinary/Genital CPT Codes: 46818 TVH+BS/O <250gr uterus
--- NOTE | 2021-05-03 07:44 | PCM.DC ---
Discharge Instructions Diet Discharge Diet: No restrictions Activity Discharge Activity: Return to Normal Activity, May Not Drive (while taking narcotic pain medications.) and May Shower May resume sexual activity in: 6-8 weeks Dressing / Incision Call your doctor if your incision/area has: Continuous Slow Oozing, Sudden Increased Bleeding, Increased Pain/ Swelling, Increased Redness and Foul Smelling Discharge Call your doctor if you observe: Fever of 101 or Higher, Inability to urinate, Inability to have a bowel movement and Using more than 1 pad per hour Follow Up Care Please Follow Up With: Ashley Boykin MD Test Results: Test results from this visit will be discussed in further detail at your follow-up appointment, if applicable. Discharge Plan Admission Attending Provider: Ashley Boykin Primary Care Provider: Care Physician,No Primary Consulting Providers: Julisa Guerra Discharge Orders/Prescriptions Prescriptions: No Action hydrochlorothiazide 12.5 MG capsule 12.5 mg PO DAILY RF: 0 fluoxetine 20 MG capsule 20 mg PO DAILY RF: 0 estradiol [Estrace] 0.01 % (0.1 mg/gram) cream 0.1 appful vaginal MOWEFR RF: 0
[2021-05-03] MEDS: Vasopressin 20 UNITS/ML Vial (07:55)
--- NOTE | 2021-05-03 08:27 | PCM.OPRPT ---
Problems Associated Problem List Diagnoses (1) Cystocele and rectocele with incomplete uterovaginal prolapse: (2) Urethral cyst: Report of Operation Date of Procedure: 05/03/21 Pre-Operative Diagnosis: incomplete uterovaginal prolapse, periurethral cyst Post-Operative Diagnosis: same Surgery/Procedure Performed:: anterior and posterior repair, right sacrospinous ligament fixation, excision periurethral cyst, cystoscopy with bilateral ureteral catheterization Surgeon: Julisa Guerra Type of Anesthesia: General Specimen's removed: none Estimated Blood Loss (mL): 25cc Description of Procedure: The patient is a 60-year-old female with pelvic organ prolapse who presents for definitive surgical intervention. She was also found to have a periurethral cyst on evaluation. She has undergone cystoscopy and urodynamics preoperatively. Informed consent was obtained. The patient was taken to the operating room and placed on the operating table. Anesthesia monitored the head, neck, airway, IV access and vital signs throughout the case. Once anesthesia was appropriate ministered the patient was placed into dorsal lithotomy in Trendelenburg position. A Perez catheter was inserted and the bladder was continuously drained. Dr. Den Collins proceeded with her portion of the case and close the vaginal cuff. At this time turned my attention to the anterior vaginal wall which was isolated and injected submucosally with vasopressin for hydrostatic dissection and hemostatic control. A vertical midline incision was made through the vaginal mucosa in full-thickness fashion. Dissection was performed on the right side until the sacrospinous ligament was identified and freed from surrounding tissues. The Capio device was then used to pass a Ethibond suture through the right sacrospinous ligament which was then brought through the vaginal mucosa at the apex. The pubocervical fascia was then brought together in a 2 layer closure with 2-0 Vicryl interrupted sutures. At this time the vaginal mucosal incision was closed using running interlocking 2-0 Vicryl and the Ethibond suture was tied into position effectively reducing the prolapse. A posterior defect was appreciated at this time. The submucosa was injected posteriorly with vasopressin for hydrostatic dissection and hemostatic control. A midline incision was made. Dissection ensued mainly on the right side and continued until the sacrospinous ligament was identified and freed from surrounding tissues. The Jeremías device was used to pass an Ethibond suture through the ligament and was then brought through the full-thickness vaginal mucosa at the apex. The rectovaginal fascia was then brought together in a 2 layer repair fixing the rectocele defect. The vaginal mucosa was then closed with running interlocking 2-0 Vicryl. The Perez catheter was then removed and a cystourethroscopy was performed through the urethra under direct visualization revealing no injury to the urethra. Bilateral ureteral orifices were intact. There were no injuries or abnormalities of the bladder mucosa identified. Each ureteral orifice was intubated with a 5 Wallisian whistle-tip catheter and easily inserted to 20 cm without evidence of obstruction or hemorrhage. This time the cystoscope was removed and the Perez catheter was replaced 10 cc in the Perez balloon. The submucosa overlying the periurethral cyst was injected also with vasopressin. An incision was made in the mucosa and the cyst was dissected from the surrounding tissues. There is no visible connection with the urethra. Following removal of the cyst, hemostasis was evident and the mucosa was closed using running interlocking 2-0 Vicryl. The patient was packed with vaginal packing and Premarin cream and was awakened and taken to the recovery room in good condition. There were no complications during this procedure. Complications None Admit VTE Documentation VTE Present on Admission: Yes VTE Mechan Device Prophylaxis: SCD's VTE Pharm Prophylaxis ordered?: Yes
--- NOTE | 2021-05-03 08:29 | PCM.DC ---
Discharge Instructions Diet Discharge Diet: No restrictions Activity Discharge Activity: May Shower May resume sexual activity in: 8 weeks Lifting Restrictions: 5 pounds Additional Activity Instructions:: No strenuous activity, no swimming, hot tubs or tub bathing, no sexual activity Dressing / Incision Call your doctor if your incision/area has: Continuous Slow Oozing, Sudden Increased Bleeding, Increased Pain/ Swelling, Increased Redness and Foul Smelling Discharge Call your doctor if you observe: Fever of 101 or Higher, Inability to urinate, Inability to have a bowel movement and Using more than 1 pad per hour Additional Dressing/Incision Instructions:: Continue vaginal estrogen cream Follow Up Care Please Follow Up With: Ashley Boykin MD When: Charlie in 2 weeks Test Results: Test results from this visit will be discussed in further detail at your follow-up appointment, if applicable. Discharge Plan Admission Primary Reason for Your Visit: hysterectomy Attending Provider: Ashley Boykin Primary Care Provider: Care Physician,No Primary Consulting Providers: Julisa Guerra Discharge Orders/Prescriptions Prescriptions: New oxycodone-acetaminophen [Percocet] 5-325 mg tablet 1 tab PO Q6H PRN (Reason: pain) 7 Days Qty: 20 RF: 0 naproxen [naproxen] 500 MG tablet 500 mg PO BID PRN PRN (Reason: Pain) Qty: 30 RF: 1 cephalexin [cephalexin] 500 MG capsule 500 mg PO Q12 3 Days Qty: 6 RF: 0 Continued hydrochlorothiazide 12.5 MG capsule 12.5 mg PO DAILY RF: 0 fluoxetine 20 MG capsule 20 mg PO DAILY RF: 0 estradiol [Estrace] 0.01 % (0.1 mg/gram) cream 0.1 appful vaginal MOWEFR RF: 0 Referrals / Follow Up: Care Physician,No Primary [Primary Care Provider] -
[2021-05-03] MEDS: Ondansetron 4 MG/2 ML Vial IV (09:15)
[2021-05-03] MEDS: Estrogens,Conj. 1 Tube 1 DOSE (10:15)
[2021-05-03] MEDS: Ketorolac 30 MG/ML Syringe IV ×2 (11:56→18:03)
[2021-05-03] MEDS: Lactated Ringers 1,000 ML 70 ML IV (19:50)
[2021-05-03] MEDS: Docusate Sodium 100 MG Capsule PO (22:14)
[2021-05-04] VITALS (9 sets, daily range): BP systolic 128–167; BP diastolic 60–82; PULSE 63–74; RESP 16–18; TEMP 36.7–37; O2SAT 94–99
[2021-05-04] MEDS: Ketorolac 30 MG/ML Syringe IV ×3 (00:24→13:04)
--- NOTE | 2021-05-04 05:32 | PCM.PN.OB ---
Subjective Subjective Patient doing well without complaints. Tolerating PO. Ambulating without difficulty. Denies chest pain, shortness of breath, calf pain/swelling, fevers, chills, lightheadedness. Objective Data Objective Data Vital Signs: Vital Signs Temp Pulse Resp BP Pulse Ox 98.1 F 73 18 138/82 H 95 05/04/21 00:28 05/04/21 01:02 05/04/21 00:28 05/04/21 00:28 05/04/21 01:02 Oxygen Flow Rate (L/min) 4 Oxygen Delivery Method Room Air Weight: 197 lb 5.019 oz Body Mass Index (BMI) 33.8 Intake & Output: Intake and Output for Last 24 Hours 05/02/21 05/03/21 05/04/21 23:59 23:59 23:59 Intake Total 2816.17 / 2816.17 Output Total 1150 / 1450 300 / 300 Balance 1666.17 / 1366.17 -300 / -300 Lab / Micro Data Result Diagrams: 04/30/21 13:50 04/30/21 13:50 ROS Constitutional Constitutional: Reports systems reviewed and no addt'l complaints, except as documented Cardiovascular Cardiovascular: Reports systems reviewed and no addt'l complaints, except as documented Respiratory/Chest Respiratory/Chest: Reports systems reviewed and no addt'l complaints, except as documented Gastrointestinal Gastrointestinal: Reports systems reviewed and no addt'l complaints, except as documented Physical Exam Const alert, oriented x3 and no apparent distress HEENT Head and Scalp: atraumatic Resp normal respiratory effort GI soft to palpation and non-tender Assessment & Plan (1) History of total vaginal hysterectomy (TVH): COMMENT: combo case with gladys PLAN: patient is s/p tvhrs POD 1 1. routine ERAS protocol postop care- increase ambulation, encourage oral intake and oral control of pain. lovenox and scds for dvt prophylaxis, patient stable for discharge to home.
[2021-05-04] MEDS: Acetaminophen 500 MG Tablet 1000 MG PO ×2 (05:57→13:04)
[2021-05-04 06:15] LABS: Hematocrit 37.1 % (37-47); Hemoglobin 12.5 g/dL (12.0-15.0); Mean Corp Hgb Conc 33.7 g/dL (32-36); Mean Corpuscular Hgb 29.5 pg (27.0-32.0); Mean Corpuscular Volume 87.5 fL (81-99); Mean Platelet Vol. 9.9 fl (6.2-12.0); Platelet Count 225 K/mm3 (150-450); RBC Distribution Width CV 14.1 % (11.6-14.6); RBC Distribution Width SD 45.5 fl (35.1-43.9); Red Blood Count 4.24 M/mm3 (4.2-5.4); White Blood Count 11.3 K/mm3 (4.4-11.0)
--- NOTE | 2021-05-04 09:33 | PN.URO_ITS ---
Subjective Subjective Up in chair, walking and tolerating PO intake. Is feeling bloated and not passing gas yet. Objective Data Objective Data Vital Signs: Vital Signs Temp Pulse Resp BP Pulse Ox 98.6 F 68 16 137/74 H 96 05/04/21 07:54 05/04/21 07:54 05/04/21 07:56 05/04/21 07:54 05/04/21 07:54 Oxygen Flow Rate (L/min) 4 Oxygen Delivery Method Room Air Weight: 89.5 kg Body Mass Index (BMI) 33.8 Intake & Output: Intake and Output for Last 24 Hours 05/02/21 05/03/21 05/04/21 23:59 23:59 23:59 Intake Total 2816.17 / 2816.17 Output Total 1150 / 1450 650 / 650 Balance 1666.17 / 1366.17 -650 / -650 Lab / Micro Data Result Diagrams: 05/04/21 05:39 04/30/21 13:50 Labs: Laboratory Results - last 24 hr 05/04/21 05:39: WBC 11.3 H, RBC 4.24, Hgb 12.5, Hct 37.1, MCV 87.5, MCH 29.5, M CHC 33.7, RDW Std Deviation 45.5 H, RDW Coeff of Jaylyn 14.1, Plt Count 225, MPV 9.9 Physical Exam Const alert, oriented x3 and no apparent distress Resp normal respiratory effort, normal air movement, no retractions and no use of accessory muscles Cardio regular rate and regular rhythm GI soft to palpation and non-tender Narrative: urine clear yellow in valentin, valentin and packing removed without difficulty Skin no rashes or lesions noted, no wounds, skin turgor normal, no jaundice, no petechiae and no mottling Neuro oriented x3, CN's II-XII intact bilaterally and moves all extremities Assessment & Plan Assessment/Plan (1) Urethral cyst: (2) Cystocele and rectocele with incomplete uterovaginal prolapse: PLAN: voiding trial ambulation home today
[2021-05-04] MEDS: Enoxaparin 40 MG/0.4 ML Syringe SC (10:04)
[2021-05-04] MEDS: Docusate Sodium 100 MG Capsule PO (10:05)
[2021-05-04] MEDS: Ondansetron ODT 4 MG Tablet PO (15:28)
--- NOTE | 2021-05-04 16:23 | NURSING ---
valentin placed as requested by primary RN Delia after she attempted without success. Sl pink tinged clear urine approx. 75-100cc immediate return. cath secure placed. pt education on importance of po intake. primary RN updated.
== END 2021-05-04 18:00 ==
LOC: SDC 15:26 → MS3 15:26
PROVIDERS: Anesthesiology; Urology; Admitting Provider Obstetrics & Gynecology; Referring Provider Obstetrics & Gynecology; Visit Provider Obstetrics & Gynecology
PROC: (CPT 58260; principal; 2021-05-03 07:10)
PROC: (CPT 57260; 2021-05-03 07:10)
DX: N81.2 Incomplete uterovaginal prolapse (principal); N36.8 Other specified disorders of urethra; I10 Essential (primary) hypertension; N95.2 Postmenopausal atrophic vaginitis; R35.1 Nocturia; N39.41 Urge incontinence; M19.90 Unspecified osteoarthritis, unspecified site; Z79.899 Other long term (current) drug therapy; Z86.16 Personal history of COVID-19; D25.9 Leiomyoma of uterus, unspecified; F41.9 Anxiety disorder, unspecified; F32.A Depression, unspecified
CPT/HCPCS: 58262; 57260; 00944; 57282; 36415; 80053; 83735; 85027; 86850; 86900; 86901; 88304; 88305; 88307; 93005; 96372; 96374; 96376; 99218; 99251; J7120; C1758; G0378; G0463; J2405

== ENCOUNTER 2021-05-07 13:38 | Outpatient (CLI) | payer OTHER, SELFPAY ==
[2021-05-07 15:33] LABS: Hemoglobin 14.5 g/dL (12.0-15.0); Mean Corp Hgb Conc 33.7 g/dL (32-36); Mean Corpuscular Hgb 28.7 pg (27.0-32.0); Mean Corpuscular Volume 85.1 fL (81-99); Mean Platelet Vol. 9.9 fl (6.2-12.0); Platelet Count 284 K/mm3 (150-450); RBC Distribution Width CV 13.2 % (11.6-14.6); RBC Distribution Width SD 40.8 fl (35.1-43.9); Red Blood Count 5.05 M/mm3 (4.2-5.4); White Blood Count 11.5 K/mm3 (4.4-11.0)
[2021-05-07 16:06] LABS: Anion Gap 10 (5-15); BUN 24 mg/dL (7-18); BUN/Creat Ratio 16.3 RATIO (10-20); Calcium,Total 8.9 mg/dL (8.5-10.1); Chloride 91 mmol/L (98-107); Creatinine, Serum 1.47 mg/dL (0.55-1.02); EST Glomerular Filtration Rate 38 mL/min (>60); Est Glom Filt Rate - Afr Amer 46 mL/min (>60); Glucose 115 mg/dL (74-106); Potassium 2.6 mmol/L (3.5-5.1); Sodium Level 129 mmol/L (136-145)
== END 2021-05-07 23:59 | disposition home or self-care (01) ==
LOC: MTLAB 13:40
PROVIDERS: PCP Family Medicine; Referring Provider Urology; Visit Provider Urology
DX: K91.0 Vomiting following gastrointestinal surgery (principal); N99.12 Postprocedural urethral stricture, female
CPT/HCPCS: 36415; 80048; 85027

== ENCOUNTER 2021-05-07 17:17 | Observation (INO) | payer OTHER, SELFPAY ==
[2021-05-07] VITALS (8 sets, daily range): BP systolic 83–117; BP diastolic 65–85; PULSE 76–111; RESP 16–24; TEMP 35.1–37.1; O2SAT 96–98; BMI 32.8; BMI 33.6
--- NOTE | 2021-05-07 18:19 | EDS_ITS ---
HPI History of Present Illness Chief Complaint: Abn Labs Informant: patient Narrative Narrative: 60-year-old female present with abnormal labs. Patient had a hysterectomy and bladder sling on Thursday. She was discharged on Thursday. Prior to being discharged from the hospital they removed her Perez catheter. She was unable to urinate after removal of the Perez catheter so Perez catheter was reinserted and she was sent home with the catheter in place. She states she is supposed to take the Perez catheter out tonight and follow-up with urology tomorrow. She states since Thursday she has had nausea and vomiting. She states today the vomiting has actually improved. She had outpatient labs performed today which showed elevated creatinine, hyponatremia, hypokalemia. Recent Illness/Hospitalization: Yes PFSH [facility] Medical History (Updated 05/07/21 @ 18:[address] Padma Castillo MD) Abnormal Pap smear of cervix Anxiety Arthritis Back pain Bladder disease COVID Cystocele and rectocele with incomplete uterovaginal prolapse Depression Diverticulitis Hypertension Leg cramps Non-smoker Post-menopausal Shortness of breath on exertion Urethral cyst Wears glasses Home Medications hydrochlorothiazide 12.5 mg PO DAILY 12/26/16 [History Last Taken 1 Week Ago ~04/30/21] estradiol [Estrace] 0.1 appful VAGINAL MOWEFR 04/26/21 [History Last Taken 05/01/21] cephalexin 500 mg PO Q12 3 Days #6 capsule 05/03/21 [Rx Last Taken 05/07/21] naproxen 500 mg PO BID PRN PRN #30 tab 05/03/21 [Rx Last Taken 05/07/21] oxycodone-acetaminophen [Percocet] 1 tab PO Q6H PRN 7 Days #20 tab 05/03/21 [Rx Last Taken 05/07/21] fluoxetine 40 mg PO DAILY 05/07/21 [History Last Taken 1 Week Ago ~04/30/21] ondansetron HCl 8 mg PO TID PRN 05/07/21 [History Last Taken 05/07/21] Allergy/AdvReac Type Severity Reaction Status Date / Time No Known Allergies Allergy Verified 05/07/21 17:19 Family History Father Cancer blood Uncle Cancer leukemia Surgical History History of total vaginal hysterectomy (TVH) Hx of colectomy Hx of colonoscopy Hx of unilateral salpingectomy Trigger finger Social History (Updated 01/17/21 @ 08:25 by Vivi Moreno) Smoking Status: Never smoker alcohol intake: never substance use type: does not use caffeine: Yes what type of physical activity do you participate in: walking frequency: 3-4 times per week seatbelt use: always do you feel safe at home: Yes additional social history: Danilo- in August 2020 at Hospice Patient works at [employer] ROS ROS ED Constitutional Constitutional ED: Denies fever(s) Eyes Eyes: Denies change in vision ENT ENT ED: Denies rhinorrhea or sore throat Cardiovascular Cardiovascular: Denies chest pain or palpitations Respiratory/Chest Respiratory/Chest: Denies cough or dyspnea Gastrointestinal Gastrointestinal: Reports nausea; Denies abdominal pain, diarrhea or vomiting Genitourinary Genitourinary ED: Denies dysuria Musculoskeletal Musculoskeletal: Denies myalgias Integumentary Denies rash Neurologic Neurologic: Denies headache(s) Psychiatric Psychiatric: Denies suicidal thoughts EXAM Physical Exam Const Vital Signs: 05/07/21 17:18 05/07/21 17:19 05/07/21 18:07 Temperature 97.6 F L 97.6 F L Temperature Source Temporal Temporal Pulse Rate 111 H 111 H Respiratory Rate 16 16 Respiratory Effort Normal Non-Labored Respiratory Pattern Normal Blood Pressure 83/67 L 83/67 L Blood Pressure Mean 72 72 Pulse Ox 97 97 Oxygen Delivery Method Room Air Room Air 05/07/21 18:17 Temperature 97.6 F L Temperature Source Temporal Pulse Rate 94 Respiratory Rate 19 H Respiratory Effort Respiratory Pattern Blood Pressure 108/65 Blood Pressure Mean 79 Pulse Ox 96 Oxygen Delivery Method Room Air Positive well nourished and well developed General Appearance ED: well developed HEENT Reports normocephalic and head/scalp atraumatic Eyes PERRL and EOMs intact bilaterally Neck supple General: Negative for tenderness Chest Wall inspection of chest normal Resp normal respiratory effort and clear to auscultation bilaterally Cardio regular rate and regular rhythm GI non-tender and non-distended Palpation: soft; Negative for guarding or rebound tenderness present no CVA tenderness Extremity normal to inspection Neuro oriented x3 Sensorium / Orientation: alert Psych mental status grossly normal MDM MDM MDM Narrative Medical decision making narrative: Patient was given IV fluids, Zofran. Outpatient labs showed sodium 129, potassium 2.6. Creatinine 1.47, previous creatinine 0.87. She was given potassium replacement. Discussed with Dr. Guerra and hospitalist for admission. Lab Data Attestation: I reviewed the patient's lab results. Discharge Plan Dx/Rx/DC Orders Clinical Impression: SINDI (acute kidney injury), Hyponatremia, Hypokalemia Disposition Disposition: Acute Care Hospital [facility]
[2021-05-07] MEDS: 0.9% Normal Saline 1,000 ML 999 ML IV ×2 (18:25→19:11)
[2021-05-07] MEDS: Ondansetron 4 MG/2 ML Vial IV (18:29)
--- NOTE | 2021-05-07 18:47 | HP.PCM_ITS ---
Documented by User: ELBERT Cavazos 05/07/21 19:03 HPI - General General Date of Admission: 05/07/21 Date of Service: 05/07/21 Chief Complaint: Nausea and vomiting HPI Narrative GEORGE BURLESON, is a 60 F who presents with complaints of nausea and vomiting. Patient underwent surgery with Dr. Guerra and Dr. Boykin for a cystocele and rectocele with incomplete uterovaginal prolapse repair on 04/16. patient states that since she has been home she has had some nausea and vomiting however she says that vomiting has improved she continues to have nausea. Upon evaluation in the ER it was noted that patient is hypokalemic as well as hyponatremic and has SINDI. Patient states that she has no medical history other than uterine fibroids and depression. Patient states that she was on hydrochlorothiazide due to significant bloating. Patient currently has a Perez catheter in which was left in place following surgery. Discussed patient's case with Dr. Guerra who requested that Perez catheter be left in overnight. Patient was supposed to have Perez catheter removed this evening. [facility] Medical History Abnormal Pap smear of cervix Anxiety Arthritis Back pain Bladder disease COVID Cystocele and rectocele with incomplete uterovaginal prolapse Depression Diverticulitis Hypertension Leg cramps Non-smoker Post-menopausal Shortness of breath on exertion Urethral cyst Wears glasses Home Medications hydrochlorothiazide 12.5 mg PO DAILY 12/26/16 [History Last Taken 1 Week Ago ~04/30/21] estradiol [Estrace] 0.1 appful VAGINAL MOWEFR 04/26/21 [History Last Taken 05/01/21] cephalexin 500 mg PO Q12 3 Days #6 capsule 05/03/21 [Rx Last Taken 05/07/21] naproxen 500 mg PO BID PRN PRN #30 tab 05/03/21 [Rx Last Taken 05/07/21] oxycodone-acetaminophen [Percocet] 1 tab PO Q6H PRN 7 Days #20 tab 05/03/21 [Rx Last Taken 05/07/21] fluoxetine 40 mg PO DAILY 05/07/21 [History Last Taken 1 Week Ago ~04/30/21] ondansetron HCl 8 mg PO TID PRN 05/07/21 [History Last Taken 05/07/21] Allergy/AdvReac Type Severity Reaction Status Date / Time No Known Allergies Allergy Verified 05/07/21 17:19 Family History Father Cancer blood Uncle Cancer leukemia Surgical History History of total vaginal hysterectomy (TVH) Hx of colectomy Hx of colonoscopy Hx of unilateral salpingectomy Trigger finger Social History Smoking Status: Never smoker alcohol intake: never substance use type: does not use caffeine: Yes what type of physical activity do you participate in: walking frequency: 3-4 times per week seatbelt use: always do you feel safe at home: Yes additional social history: Danilo- in August 2020 at Hospice Patient works at [employer] ROS Constitutional Constitutional: Denies anorexia, chills, fatigue, fever(s) or weakness Cardiovascular Cardiovascular: Denies chest pain, claudication, edema, palpitations or syncope Respiratory/Chest Respiratory/Chest: Denies cough, shortness of breath at rest, shortness of breath with exertion or wheezing Gastrointestinal Gastrointestinal: Reports nausea and vomiting; Denies abdominal pain, constipation or diarrhea Genitourinary Genitourinary: Denies dysuria Musculoskeletal Musculoskeletal: Denies back pain, extremity pain, joint pain or joint stiffness Integumentary Integumentary: Denies dry skin Neurologic Neurologic: Denies abnormal gait, abnormal speech, confusion or dizziness Psychiatric Psychiatric: Denies anxiety or depression Endocrine Endocrinology: Denies change in body appearance Hematologic/Lymphatic Hematologic/Lymphatic: Denies anemia Vital Signs Vital Signs Vital Signs: 05/07/21 17:18 05/07/21 17:19 05/07/21 18:07 Temperature 97.6 F L 97.6 F L Temperature Source Temporal Temporal Pulse Rate 111 H 111 H Respiratory Rate 16 16 Respiratory Effort Normal Non-Labored Respiratory Pattern Normal Blood Pressure 83/67 L 83/67 L Blood Pressure Mean 72 72 Pulse Ox 97 97 Oxygen Delivery Method Room Air Room Air 05/07/21 18:17 Temperature 97.6 F L Temperature Source Temporal Pulse Rate 94 Respiratory Rate 19 H Respiratory Effort Respiratory Pattern Blood Pressure 108/65 Blood Pressure Mean 79 Pulse Ox 96 Oxygen Delivery Method Room Air Weight Weight: 185 lb Body Mass Index (BMI) 32.8 Physical Exam Const alert, oriented x3 and no apparent distress General Appearance: cooperative HEENT normocephalic and head/scalp atraumatic Eyes conjunctivae normal and no scleral icterus Neck no lymphadenopathy and supple General: trachea midline Resp normal respiratory effort, normal air movement and clear to auscultation bilaterally Cardio regular rate, regular rhythm, S1 normal heart sound, S2 normal heart sound and peripheral pulses 2+ throughout GI normal to inspection, nondistended, normoactive bowel sounds, soft to palpation and non-tender Extremity normal capillary refill and no clubbing, cyanosis or edema General Extremity: no tenderness to palpation of joints or extremities Skin General Skin Exam: no breakdown and turgor normal Lesions: no lesions Rashes: no rashes Neuro no focal motor deficits and no sensory deficits noted Speech: speech normal Motor Exam: Negative for general weakness Psych thought process normal, cooperative and affect normal Appearance: appropriate Assessment & Plan Assessment/Plan (1) SINDI (acute kidney injury): (2) Hyponatremia: (3) Hypokalemia: PLAN: 1. Hypokalemia -Admit to [facility] with telemetry -Potassium chloride 40 mEq IV x1 ordered in ER -Repeat potassium at midnight or 1 hour following completion of potassium infusion -CBC and BMP in a.m. -Magnesium and phosphorus stat -Potassium 3.6 level on 04/30/2021 2. Hyponatremia -Likely secondary to recent surgery as well as use of hydrochlorothiazide -We will hold hydrochlorothiazide -Normal saline at 100 mL/h -BMP in a.m. -Sodium 141 on 04/30/2021 3. SINDI -Likely secondary to use of hydrochlorothiazide and decreased intake secondary to nausea and vomiting -Normal saline 100 mL/h -Repeat BMP in a.m. 4. Recent repair of cystocele and rectocele with incomplete uterovaginal prolapse -Maintain Perez catheter -Intake and output -Consult Dr. uGerra DVT prophylaxis-not indicated, observation patient This patient was seen by ELBERT Cavazos under the supervision of Dr. Lentz. 31 minutes spent in clinical coordination of patient's plan of care. Documented by User: Dr. Leticia Lentz MD 05/07/21 20:27 HPI - General General Date of Admission: 05/07/21 PFSH Medical History Abnormal Pap smear of cervix Anxiety Arthritis Back pain Bladder disease COVID Cystocele and rectocele with incomplete uterovaginal prolapse Depression Diverticulitis Hypertension Leg cramps Non-smoker Post-menopausal Shortness of breath on exertion Urethral cyst Wears glasses Home Medications hydrochlorothiazide 12.5 mg PO DAILY 12/26/16 [History Last Taken 1 Week Ago ~04/30/21] estradiol [Estrace] 0.1 appful VAGINAL MOWEFR 04/26/21 [History Last Taken 05/01/21] cephalexin 500 mg PO Q12 3 Days #6 capsule 05/03/21 [Rx Last Taken 05/07/21] naproxen 500 mg PO BID PRN PRN #30 tab 05/03/21 [Rx Last Taken 05/07/21] oxycodone-acetaminophen [Percocet] 1 tab PO Q6H PRN 7 Days #20 tab 05/03/21 [Rx Last Taken 05/07/21] fluoxetine 40 mg PO DAILY 05/07/21 [History Last Taken 1 Week Ago ~04/30/21] ondansetron HCl 8 mg PO TID PRN 05/07/21 [History Last Taken 05/07/21] Allergy/AdvReac Type Severity Reaction Status Date / Time No Known Allergies Allergy Verified 05/07/21 17:19 Family History Father Cancer blood Uncle Cancer leukemia Surgical History History of total vaginal hysterectomy (TVH) Hx of colectomy Hx of colonoscopy Hx of unilateral salpingectomy Trigger finger Social History Smoking Status: Never smoker alcohol intake: never substance use type: does not use caffeine: Yes what type of physical activity do you participate in: walking frequency: 3-4 times per week seatbelt use: always do you feel safe at home: Yes additional social history: Danilo- in August 2020 at Hospice Patient works at [employer]
[2021-05-07] MEDS: Potassium Chloride 10mEq/100mL 10 MEQ/100 ML IV.SOLN. 100 MEQ IV BOLUS ×4 (19:10→23:09)
[2021-05-07 19:12] LABS: Magnesium 2.3 mg/dL (1.6-2.6); Phosphorus 2.5 mg/dL (2.5-4.9)
[2021-05-07 19:56] LABS: Bacteria 0 SEEN /hpf (None Seen); Mucous, Urine 0 SEEN /hpf (<or=2+); Squamous Epithelial Cells - UA 0 SEEN /hpf (5-10)
[2021-05-07 20:04] LABS: Color, Urine Yellow (Yellow); Glucose, Dipstick Normal (Normal); Ketone-Dipstick Negative (Negative); Leukocyte Esterase-Dipstick Negative /ul (Negative); Nitrite-Dipstick Negative (Negative); Occult Blood-Urine 50 /ul (Negative); Protein-Dipstick Negative (Negative); Specific Gravity, Urine 1.005 (1.002-1.030); Urine Bilirubin Dipstick Negative (Negative); Urine Clarity Clear (Clear); Urine Urobilinogen Normal (Normal); Urine pH 6.5 (5.0 - 8.0)
[2021-05-07 20:25] LABS: Red Blood Cells-Urine 0-5 SEEN /hpf (0-5); White Blood Cells 0-5 SEEN /hpf (0-5)
[2021-05-07] MEDS: Cephalexin 500 MG Capsule PO (21:09)
[2021-05-07] MEDS: 0.9% Normal Saline 1,000 ML 100 ML IV (21:51)
[2021-05-08] VITALS (7 sets, daily range): BP systolic 114–120; BP diastolic 50–80; PULSE 72–88; RESP 14–18; TEMP 36.9–37.3; O2SAT 96–100
[2021-05-08 01:32] LABS: Potassium 3.2 mmol/L (3.5-5.1)
[2021-05-08] MEDS: Potassium Chloride Oral Tablet 20 MEQ 60 MEQ PO (03:51)
[2021-05-08 06:02] LABS: Absolute Lymphocyte Count 1.79 X10^3/uL (0.83-4.51); Basophil# 0.04 X10^3/uL; Basophil% 0.5 % (0-1); Eosinophil# 0.33 X10^3/uL; Hematocrit 36.7 % (37-47); Lymphocyte # 1.79 X10^3/ul (0.83-4.51); Lymphocyte % 21.7 % (19-41); Mean Corp Hgb Conc 35.4 g/dL (32-36); Mean Corpuscular Hgb 30.1 pg (27.0-32.0); Mean Platelet Vol. 9.8 fl (6.2-12.0); Monocyte# 0.99 X10^3/uL; NRBC Flagged by Analyzer 0 % (0-5); Neutrophil % 60.7 % (47-70); Platelet Count 195 K/mm3 (150-450); RBC Distribution Width CV 13.3 % (11.6-14.6); RBC Distribution Width SD 41.2 fl (35.1-43.9); Red Blood Count 4.32 M/mm3 (4.2-5.4); White Blood Count 8.2 K/mm3 (4.4-11.0)
[2021-05-08 06:26] LABS: Anion Gap 4 (5-15); BUN 18 mg/dL (7-18); BUN/Creat Ratio 17.8 RATIO (10-20); Calcium,Total 8.1 mg/dL (8.5-10.1); Chloride 107 mmol/L (98-107); Creatinine, Serum 1.01 mg/dL (0.55-1.02); EST Glomerular Filtration Rate 59 mL/min (>60); Est Glom Filt Rate - Afr Amer 72 mL/min (>60); Estimated Creatinine Clearance 48.39 ml/min; Glucose 94 mg/dL (74-106); Potassium 3.4 mmol/L (3.5-5.1); Sodium Level 139 mmol/L (136-145)
[2021-05-08] MEDS: 0.9% Normal Saline 1,000 ML 100 ML IV (06:48)
--- NOTE | 2021-05-08 07:19 | PCM.PN.HOSP ---
Objective Data Objective Data Vital Signs: Vital Signs Temp Pulse Resp BP Pulse Ox 98.4 F 76 18 120/50 L 97 05/08/21 03:10 05/08/21 03:10 05/08/21 03:10 05/08/21 03:10 05/08/21 03:10 Oxygen Delivery Method Room Air Weight: 87.4 kg Body Mass Index (BMI) 33.6 Intake & Output: Intake and Output for Last 24 Hours 05/06/21 05/07/21 05/08/21 23:59 23:59 23:59 Intake Total 2065.9 / 2265.9 1495 / 1495 Output Total 1350 / 1350 Balance 2065.9 / 1915.9 145 / 145 Lab / Micro Data Result Diagrams: 05/08/21 05:00 05/08/21 05:00 Labs: Laboratory Results - last 24 hr 05/07/21 18:25: Phosphorus 2.5, Magnesium 2.3 05/07/21 19:40: Urine Color Yellow, Urine Clarity Clear, Urine pH 6.5, Ur Specific [place] 1.005, Urine Protein Negative, Urine Glucose (UA) Normal, Urine Ketones Negative, Urine Occult Blood 50 H, Urine Nitrite Negative, Urine Bilirubin Negative, Urine Urobilinogen Normal, Ur Leukocyte Esterase Negative, Urine RBC 0-5 SEEN, Urine WBC 0-5 SEEN, Ur Squamous Epith Cells 0 SEEN, Urine Bacteria 0 SEEN, Urine Mucus 0 SEEN 05/08/21 01:13: Potassium 3.2 L 05/08/21 05:00: WBC 8.2, RBC 4.32, Hgb 13.0, Hct 36.7 L, MCV 85.0, MCH 30.1, MCHC 35.4 D, RDW Std Deviation 41.2, RDW Coeff of [place] 13.3, Plt Count 195, MPV 9.8, Immature Gran % (Auto) 1.100 H, Neut % (Auto) 60.7, Lymph % (Auto) 21.7, [place] % (Auto) 12.0 H, Eos % (Auto) 4.0, Baso % (Auto) 0.5, Absolute Neuts (auto) 5.0, Absolute Lymphs (auto) 1.79, Nucleated RBC % 0 05/08/21 05:00: Sodium 139, Potassium 3.4 L, Chloride 107, Carbon Dioxide 28.0, Anion Gap 4 L, BUN 18, Creatinine 1.01, Estim Creat Clear Calc 48.39, Est GFR (MDRD) Af Amer 72, Est GFR (MDRD) Non-Af 59 L, BUN/Creatinine Ratio 17.8, Glucose 94, Calcium 8.1 L Assessment & Plan Assessment/Plan (1) SINDI (acute kidney injury): (2) Hyponatremia: (3) Hypokalemia: PLAN: 1. Hypokalemia -Admit to [facility] with telemetry -Potassium chloride 40 mEq IV x1 ordered in ER -Repeat potassium at midnight or 1 hour following completion of potassium infusion -CBC and BMP in a.m. -Magnesium and phosphorus stat -Potassium 3.6 level on 04/30/2021 2. Hyponatremia -Likely secondary to recent surgery as well as use of hydrochlorothiazide -We will hold hydrochlorothiazide -Normal saline at 100 mL/h -BMP in a.m. -Sodium 141 on 04/30/2021 3. SINDI -Likely secondary to use of hydrochlorothiazide and decreased intake secondary to nausea and vomiting -Normal saline 100 mL/h -Repeat BMP in a.m. 4. Recent repair of cystocele and rectocele with incomplete uterovaginal prolapse -Maintain Perez catheter -Intake and output -Consult Dr. Guerra
--- NOTE | 2021-05-08 07:54 | PCM.CONS.GEN ---
Assessment & Plan Assessment/Plan (1) SINDI (acute kidney injury): (2) Hyponatremia: (3) Hypokalemia: (4) Urethral cyst: PLAN: trial of void today continue supportive care after discharge, follow up in office, call for appt. HPI Consult Data Date of Consult: 05/08/21 HPI Narrative HPI Narrative: GEORGE BURLESON, is a 60 F who presents with electrolyte disturbance and dehydration after vomiting over the weekend. She was discharged home Thursday after pelvic reconstruction and had nausea and vomiting Thursday and Thursday, did not call the office until Thursday morning. She did not get labs drawn until yesterday. She has no complaints this morning. No nausea since Thursday. Ready for valentin to come out. [facility] Medical History Abnormal Pap smear of cervix Anxiety Arthritis Back pain Bladder disease COVID Cystocele and rectocele with incomplete uterovaginal prolapse Depression Diverticulitis Hypertension Leg cramps Non-smoker Post-menopausal Shortness of breath on exertion Urethral cyst Wears glasses Home Medications hydrochlorothiazide 12.5 mg PO DAILY 12/26/16 [History Last Taken 1 Week Ago ~04/30/21] estradiol [Estrace] 0.1 appful VAGINAL MOWEFR 04/26/21 [History Last Taken 05/01/21] cephalexin 500 mg PO Q12 3 Days #6 capsule 05/03/21 [Rx Last Taken 05/07/21] naproxen 500 mg PO BID PRN PRN #30 tab 05/03/21 [Rx Last Taken 05/07/21] oxycodone-acetaminophen [Percocet] 1 tab PO Q6H PRN 7 Days #20 tab 05/03/21 [Rx Last Taken 05/07/21] fluoxetine 40 mg PO DAILY 05/07/21 [History Last Taken 1 Week Ago ~04/30/21] ondansetron HCl 8 mg PO TID PRN 05/07/21 [History Last Taken 05/07/21] Allergy/AdvReac Type Severity Reaction Status Date / Time No Known Allergies Allergy Verified 05/07/21 17:19 Family History Father Cancer blood Uncle Cancer leukemia Surgical History History of total vaginal hysterectomy (TVH) Hx of colectomy Hx of colonoscopy Hx of unilateral salpingectomy Trigger finger Social History Smoking Status: Never smoker alcohol intake: never substance use type: does not use caffeine: Yes what type of physical activity do you participate in: walking frequency: 3-4 times per week seatbelt use: always do you feel safe at home: Yes additional social history: Danilo- in August 2020 at Hospice Patient works at [employer] ROS Constitutional Constitutional: Denies body ache(s), chills, fever(s) or headache(s) Eyes Eyes: Denies change in vision ENT HEENT: Denies headache(s) or sore throat Cardiovascular Cardiovascular: Denies abdominal bloating, abdominal pain, chest pain, diaphoresis, dizziness, dyspnea or edema Respiratory/Chest Respiratory/Chest: Denies chest tightness, cough or dyspnea Gastrointestinal Gastrointestinal: Denies abdominal pain, nausea or vomiting Genitourinary Genitourinary: Reports difficulty urinating and other Details: vagina feels raw with valentin irritation. No flank pain. Musculoskeletal Musculoskeletal: Reports systems reviewed and no addt'l complaints, except as documented Integumentary Integumentary: Reports systems reviewed and no addt'l complaints, except as documented Neurologic Neurologic: Reports systems reviewed and no addt'l complaints, except as documented Psychiatric Psychiatric: Reports systems reviewed and no addt'l complaints, except as documented Endocrine Endocrinology: Reports systems reviewed and no addt'l complaints, except as documented Hematologic/Lymphatic Hematologic/Lymphatic: Reports systems reviewed and no addt'l complaints, except as documented Allergic/Immunologic Allergic/Immunologic: Reports systems reviewed and no addt'l complaints, except as documented Physical Exam Const alert, oriented x3 and no apparent distress HEENT normocephalic, hearing grossly normal bilaterally, external ears normal and external nose normal Eyes conjunctivae normal and no scleral icterus General Eye: normal appearance of both eyes Neck supple General: trachea midline Lymph Lymphatic: no lymphedema noted Chest inspection of chest normal Chest: symmetrical chest wall rise Resp normal respiratory effort, normal air movement, no retractions and no use of accessory muscles Cardio regular rate and regular rhythm GI soft to palpation, non-tender and non-distended no CVA tenderness Narrative: valentin with clear yellow urine, removed without difficulty Back/Spine no CVA tenderness Extremity normal to inspection Skin no rashes or lesions noted, no wounds, no jaundice, no petechiae and no mottling Neuro oriented x3, CN's II-XII intact bilaterally and moves all extremities Psych mental status grossly normal, thought process normal, cooperative, affect normal and speech normal Lab / Micro Data Result Diagrams: 05/08/21 05:00 05/08/21 05:00 Labs: Laboratory Results - last 24 hr 05/07/21 18:25: Phosphorus 2.5, Magnesium 2.3 05/07/21 19:40: Urine Color Yellow, Urine Clarity Clear, Urine pH 6.5, Ur Specific [place] 1.005, Urine Protein Negative, Urine Glucose (UA) Normal, Urine Ketones Negative, Urine Occult Blood 50 H, Urine Nitrite Negative, Urine Bilirubin Negative, Urine Urobilinogen Normal, Ur Leukocyte Esterase Negative, Urine RBC 0-5 SEEN, Urine WBC 0-5 SEEN, Ur Squamous Epith Cells 0 SEEN, Urine Bacteria 0 SEEN, Urine Mucus 0 SEEN 05/08/21 01:13: Potassium 3.2 L 05/08/21 05:00: WBC 8.2, RBC 4.32, Hgb 13.0, Hct 36.7 L, MCV 85.0, MCH 30.1, MCHC 35.4 D, RDW Std Deviation 41.2, RDW Coeff of Jaylyn 13.3, Plt Count 195, MPV 9.8, Immature Gran % (Auto) 1.100 H, Neut % (Auto) 60.7, Lymph % (Auto) 21.7, [place] % (Auto) 12.0 H, Eos % (Auto) 4.0, Baso % (Auto) 0.5, Absolute Neuts (auto) 5.0, Absolute Lymphs (auto) 1.79, Nucleated RBC % 0 05/08/21 05:00: Sodium 139, Potassium 3.4 L, Chloride 107, Carbon Dioxide 28.0, Anion Gap 4 L, BUN 18, Creatinine 1.01, Estim Creat Clear Calc 48.39, Est GFR (MDRD) Af Amer 72, Est GFR (MDRD) Non-Af 59 L, BUN/Creatinine Ratio 17.8, Glucose 94, Calcium 8.1 L
[2021-05-08] MEDS: Cephalexin 500 MG Capsule PO (08:56)
[2021-05-08] MEDS: FLUoxetine 20 MG Capsule 40 MG PO (08:56)
[2021-05-08] MEDS: Potassium Chloride Oral Tablet 20 MEQ PO (08:59)
--- NOTE | 2021-05-08 10:54 | DS.PCM_ITS ---
Providers Date of Admission: 05/07/21 Primary Care Physician: Dr. Ayan Rubio MD Consultations 05/07/21 20:05 Consult: Urology Routine Consulting Provider: Julisa Guerra Reason for Consult: Recent rectocele repair EMERGENT Consult: No MD Notified: Yes Date Notified: 05/07/21 Time Notified: 19:02 Method of Notification: Provider Initiated Reason For Visit: NAUSEA AND VOMITING Diagnosis Discharge Diagnosis (1) SINDI (acute kidney injury): Status: Acute Code(s): N17.9 - Acute kidney failure, unspecified (2) Hyponatremia: Status: Acute Code(s): E87.1 - Hypo-osmolality and hyponatremia (3) Hypokalemia: Status: Acute Code(s): E87.6 - Hypokalemia (4) Urethral cyst: Status: Acute Code(s): N36.8 - Other specified disorders of urethra Medications at Discharge Home Medications estradiol [Estrace] 0.1 appful VAGINAL MOWEFR 04/26/21 cephalexin 500 mg PO Q12 3 Days #6 capsule 05/03/21 naproxen 500 mg PO BID PRN PRN #30 tab 05/03/21 oxycodone-acetaminophen [Percocet] 1 tab PO Q6H PRN 7 Days #20 tab 05/03/21 fluoxetine 40 mg PO DAILY 05/07/21 ondansetron HCl 8 mg PO TID PRN 05/07/21 potassium chloride [Klor-Con M20] 20 meq PO BIDCM #60 tab 05/08/21 Hospital Course Operations None Summary of Care Provided Minutes Spent on Discharge: 35 Hospital Course: Patient is a 60-year-old lady with recent cystocele and rectocele repair on 05/03/2021 who presented with nausea and vomiting. Patient was found to be hypokalemic as well as in acute kidney injury. Patient admitted to regular nursing floor rehydrated with IV fluid with correction of electrolyte. Patient symptoms did resolve a day after her admission discharged home with potassium added to her treatment regimen. Patient was on HCTZ discontinued on discharge in view of her hyponatremia and hypokalemia as well as acute kidney injury Assessment 1. Acute kidney injury 2. Hypokalemia 3. Hyponatremia Physical Exam Narrative GENERAL: cooperative HEENT: Atraumatic; EYES; Anicteric, Normal Conjunctiva NECK; supple, normal thyroid, RESPIRATORY: Diminished to auscultation CARDIOVASCULAR: Regular S1 S2, GI: soft, normoactive bowel sounds, : No Renal angle tenderness; EXTREMITIES: No edema, no clubbing, MUSCULOSKELETAL: no muscle wasting NEURO: Awake; no lateralizing signs. SKIN: No Rash PSYCH; Flat affect Weight / BMI Weight Weight: 87.4 kg Body Mass Index (BMI) 33.6 ABG / Lab / Microbiology Data Result Diagrams: 05/08/21 05:00 05/08/21 05:00 Laboratory: Laboratory Results - last 24 hr 05/07/21 18:25: Phosphorus 2.5, Magnesium 2.3 05/07/21 19:40: Urine Color Yellow, Urine Clarity Clear, Urine pH 6.5, Ur Specific [place] 1.005, Urine Protein Negative, Urine Glucose (UA) Normal, Urine Ketones Negative, Urine Occult Blood 50 H, Urine Nitrite Negative, Urine B ilirubin Negative, Urine Urobilinogen Normal, Ur Leukocyte Esterase Negative, Urine RBC 0-5 SEEN, Urine WBC 0-5 SEEN, Ur Squamous Epith Cells 0 SEEN, Urine Bacteria 0 SEEN, Urine Mucus 0 SEEN 05/08/21 01:13: Potassium 3.2 L 05/08/21 05:00: WBC 8.2, RBC 4.32, Hgb 13.0, Hct 36.7 L, MCV 85.0, MCH 30.1, MCHC 35.4 D, RDW Std Deviation 41.2, RDW Coeff of [place] 13.3, Plt Count 195, MPV 9.8, Immature Gran % (Auto) 1.100 H, Neut % (Auto) 60.7, Lymph % (Auto) 21.7, [place] % (Auto) 12.0 H, Eos % (Auto) 4.0, Baso % (Auto) 0.5, Absolute Neuts (auto) 5.0, Absolute Lymphs (auto) 1.79, Nucleated RBC % 0 05/08/21 05:00: Sodium 139, Potassium 3.4 L, Chloride 107, Carbon Dioxide 28.0, Anion Gap 4 L, BUN 18, Creatinine 1.01, Estim Creat Clear Calc 48.39, Est GFR (MDRD) Af Amer 72, Est GFR (MDRD) Non-Af 59 L, BUN/Creatinine Ratio 17.8, Glucose 94, Calcium 8.1 L D/C Instructions Discharge Diet: No restrictions Discharge Activity: Return to Normal Activity Call your doctor if you observe: Fever of 101 or Higher, Shortness of breath, Fainting spells and Chest pain Meaningful Use Info Meaningful Use Diagnoses (Choose all that apply): None applicable Discharge Plan Admission Admit Date/Time: 05/07/21 18:40 Attending Provider: Michele Aguila Primary Care Provider: Ayan Rubio Consulting Providers: Julisa Guerra Discharge Orders/Prescriptions Prescriptions: New potassium chloride [Klor-Con M20] 20 mEq Tablet,Er Particles/Crystals 20 meq PO BIDCM Qty: 60 RF: 0 Continued estradiol [Estrace] 0.01 % (0.1 mg/gram) cream 0.1 appful vaginal MOWEFR RF: 0 oxycodone-acetaminophen [Percocet] 5-325 mg tablet 1 tab PO Q6H PRN (Reason: pain) 7 Days Qty: 20 RF: 0 naproxen 500 MG tablet 500 mg PO BID PRN PRN (Reason: Pain) Qty: 30 RF: 1 cephalexin 500 MG capsule 500 mg PO Q12 3 Days Qty: 6 RF: 0 fluoxetine 40 mg capsule 40 mg PO DAILY RF: 0 ondansetron HCl 8 mg tablet 8 mg PO TID PRN (Reason: Nausea) RF: 0 Discontinued hydrochlorothiazide 12.5 MG capsule 12.5 mg PO DAILY RF: 0 Referrals / Follow Up: Julisa Guerra MD [STAFF PHYSICIAN] - In 1 Week Ayan Rubio MD [Primary Care Provider] - Within 2 Weeks Disposition Disposition (needs filled in before D/C Order can be placed): Home, Self Care Charges/Coding Visit Charges OBSV E&M: 95142 Observation care discharge
== END 2021-05-08 12:47 | disposition home or self-care (01) ==
LOC: ED 18:43 → MS3 18:52
PROVIDERS: Nurse Practitioner Family; Admitting Provider Family Medicine; Emergency Provider Emergency Medicine; PCP Family Medicine; Visit Provider Internal Medicine
DX: N17.9 Acute kidney failure, unspecified (principal); E87.6 Hypokalemia; E86.0 Dehydration; R11.2 Nausea with vomiting, unspecified; F41.9 Anxiety disorder, unspecified; M19.90 Unspecified osteoarthritis, unspecified site; F32.A Depression, unspecified; E87.1 Hypo-osmolality and hyponatremia; E66.9 Obesity, unspecified; I10 Essential (primary) hypertension; Z79.899 Other long term (current) drug therapy; Z98.890 Other specified postprocedural states; Z86.16 Personal history of COVID-19; Z68.33 Body mass index [BMI] 33.0-33.9, adult; N36.8 Other specified disorders of urethra
CPT/HCPCS: 36415; 80048; 81001; 83735; 84100; 84132; 85025; 96361; 96365; 96366; 96375; 99218; 99283; J7030; A4216; G0378; J2405

== ENCOUNTER 2021-05-09 15:10 | Emergency (ER) | payer OTHER, SELFPAY ==
[2021-05-09 15:11] VITALS: BP 171/96; PULSE 80; RESP 16; TEMP 36.4; O2SAT 100; BMI 33.5
--- NOTE | 2021-05-09 15:34 | RAD_ITS ---
HISTORY: vomiting. TECHNIQUE: Abdomen acute series with chest. # of images incl. paperwork: 5. COMPARISON: 02/19/2020. FINDINGS: --Chest: CARDIOMEDIASTINAL STRUCTURES: Cardiac silhouette not enlarged. Mediastinal contour unremarkable. LUNGS: Radiographically clear. PLEURA: No pleural effusion or pneumothorax. BONES: Unremarkable. --Abdomen: BOWEL GAS PATTERN: No dilated bowel loops with a paucity of bowel gas in the midabdomen. FREE AIR: None seen on upright view. CALCIFICATIONS: Small calcification in the left pelvis. Suture and surgical clips in the left pelvis. BONES: Mild lumbar levoscoliosis. RAD/Acute Abdomen Inc Chest IMPRESSION: Nonspecific bowel gas pattern. at 1624 Reported and signed by: Janeth Anguiano MD Electronically Signed: Janeth Anguiano MD at 16:22 EST ,
--- NOTE | 2021-05-09 15:35 | ED.VIS.GI ---
HPI HPI - GI History of Present Illness Chief Complaint: Nausea/Vomiting Informant: patient Diarrhea/Melena/Hematochezia GI Symptom: Positive for Diarrhea; Negative for Melena and Hematochezia Onset: Today Stool Quality: Positive for Loose Severity: Mild Associated Symptoms Associated Symptoms: Negative for Dysuria, Frequency, Hematuria and Urgency Narrative Narrative: Patient recently had pelvic organ prolapse repair/hysterectomy, her postoperative course was complicated by lots of vomiting and she was admitted for hypokalemia as a result. She was discharged yesterday. She had had a bowel movement yet so she took some milk of magnesia, she woke up in the morning having lots of loose diarrhea without any blood, she only took 1 dose of milk of magnesia as she states 1 capful and only did one time. Subsequently she started vomiting, she still feels very queasy and has been vomiting off and on despite taking the nausea medicine she was prescribed which she cannot remember but it was a pill that she swallowed. She is not sure if it did not work or if she vomited it up, but she has still been queasy and vomiting. She denies any abdominal pain. She denies any fevers, shortness of breath, chest pain, but she feels miserable. She called Dr. Dent, she was mostly get a call back, she has not yet and so her daughter brought her to the hospital. [facility] Medical History Abnormal Pap smear of cervix Anxiety Arthritis Back pain Bladder disease COVID Cystocele and rectocele with incomplete uterovaginal prolapse Depression Diverticulitis Hypertension Leg cramps Non-smoker Post-menopausal Shortness of breath on exertion Urethral cyst Wears glasses Home Medications estradiol [Estrace] 0.1 appful VAGINAL MOWEFR 04/26/21 [History Last Taken 05/01/21] cephalexin 500 mg PO Q12 3 Days #6 capsule 05/03/21 [Rx Last Taken 05/07/21] naproxen 500 mg PO BID PRN PRN #30 tab 05/03/21 [Rx Last Taken 05/07/21] oxycodone-acetaminophen [Percocet] 1 tab PO Q6H PRN 7 Days #20 tab 05/03/21 [Rx Last Taken 05/07/21] fluoxetine 40 mg PO DAILY 05/07/21 [History Last Taken 1 Week Ago ~04/30/21] potassium chloride [Klor-Con M20] 20 meq PO BIDCM #60 tab 05/08/21 [Rx Last Taken Unknown] ondansetron HCl 8 mg PO Q8H PRN #20 tab 05/09/21 [Rx Last Taken Unknown] Allergy/AdvReac Type Severity Reaction Status Date / Time No Known Allergies Allergy Verified 05/09/21 15:13 Family History Father Cancer blood Uncle Cancer leukemia Surgical History History of total vaginal hysterectomy (TVH) Hx of colectomy Hx of colonoscopy Hx of unilateral salpingectomy Trigger finger Social History Smoking Status: Never smoker alcohol intake: never substance use type: does not use caffeine: Yes what type of physical activity do you participate in: walking frequency: 3-4 times per week seatbelt use: always do you feel safe at home: Yes additional social history: Danilo- in August 2020 at Hospice Patient works at [employer] ROS ROS ED Constitutional Constitutional ED: Reports fatigue and malaise; Denies body ache(s), chills or fever(s) Eyes Eyes: Denies change in vision or diplopia ENT ENT ED: Denies rhinorrhea or sore throat Cardiovascular Cardiovascular: Denies chest pain or palpitations Respiratory/Chest Respiratory/Chest: Denies cough or dyspnea Gastrointestinal Gastrointestinal: Reports as per HPI, diarrhea, nausea and vomiting; Denies abdominal pain Genitourinary Genitourinary ED: Denies dysuria or hematuria Musculoskeletal Musculoskeletal: Denies back pain or neck pain Integumentary Denies abscess or rash Neurologic Neurologic: Denies headache(s), paresthesias or weakness Psychiatric Psychiatric: Denies anxiety or suicidal thoughts EXAM Physical Exam Const Vital Signs: 05/09/21 15:11 Temperature 97.5 F L Temperature Source Temporal Pulse Rate 80 Respiratory Rate 16 Blood Pressure 171/96 H Blood Pressure Mean 121 Pulse Ox 100 Oxygen Delivery Method Room Air Positive well nourished and well developed Constitutional Narrative: No distress but does not appear to feel well General Appearance ED: well developed and NAD HEENT Reports moist mucous membranes normocephalic and atraumatic Eyes PERRL and EOMs intact bilaterally Neck full ROM and supple Resp normal respiratory effort and clear to auscultation bilaterally Cardio regular rate, regular rhythm and no murmurs GI non-tender and non-distended Auscultation: absent bowel sounds Palpation: soft Back/Spine no CVA tenderness General Back: other FROM Extremity normal to inspection General Extremety ED: Negative for edema, pulses abnormal or tenderness General Extremity: Negative for edema or pulses abnormal Neuro oriented x3, CN's II-XII intact bilaterally and no sensory deficits noted Sensorium / Orientation: awake and alert Motor Exam: strength 5/5 throughout Skin no rashes or lesions noted and no wounds MDM MDM MDM Narrative Medical decision making narrative: Patient initially given IV fluids and Reglan but she did not feel much better, so than given Zofran and she felt much better but still little nauseated. She was able to tolerate oral fluids. She had no abdominal pain. I did an acute abdominal series given that she had few bowel sounds, it shows no evidence of an ileus or free air. I discussed with one of her surgeons, Dr. Guerra. She requested a CT of her abdomen and pelvis, which is not unreasonable given her leukocytosis. This was done and shows evidence of diffuse colitis, interesting since the patient has no pain or tenderness. The finding is of unknown significance. I think less likely indicating C. difficile colitis since she had a little diarrhea earlier but basically is gone the rest of the day without any. Could be that her leukocytosis and predilection for neutrophils is demargination due to all of the vomiting she has been having. Her potassium is normal now. I discussed again with urology and she gave the patient the option of staying, which I offered to her, but she declines and prefers to go home. Will prescribe her Zofran and her surgeon will follow up with her tomorrow. Lab Data Attestation: I reviewed the patient's lab results. Labs: Laboratory Results - last 24 hr 05/09/21 05/09/21 15:29 15:29 WBC 14.2 H RBC 4.95 Hgb 14.7 Hct 42.2 MCV 85.3 MCH 29.7 MCHC 34.8 RDW Std Deviation 41.4 RDW Coeff of Jaylyn 13.2 Plt Count 251 MPV 9.4 Immature Gran % (Auto) 0.800 Neut % (Auto) 92.3 H Lymph % (Auto) 3.2 L [place] % (Auto) 3.6 Eos % (Auto) 0.0 Baso % (Auto) 0.1 Absolute Neuts (auto) 13.1 H Absolute Lymphs (auto) 0.46 L Nucleated RBC % 0 Differential Comment SCANNED Sodium 132 L Potassium 4.4 Chloride 101 Carbon Dioxide 25.0 Anion Gap 6 BUN 10 Creatinine 0.87 Estim Creat Clear Calc 56.17 Est GFR (MDRD) Af Amer 85 Est GFR (MDRD) Non-Af 71 BUN/Creatinine Ratio 11.5 Glucose 140 H Calcium 8.9 Radiography Diagnostic Testing: Clinical Impression(s) from Imaging Studies Acute Abdomen Series 05/09/21 15:34 IMPRESSION: Nonspecific bowel gas pattern. at 1624 Reported and signed by: Janeth Anguiano MD Electronically Signed: Janeth Anguiano MD at 16:22 EST Reading Location ID and State: [facility] / [place] Tel , Service support , Abdomen/Pelvis CT 05/09/21 18:45 IMPRESSION: 1. Postsurgical changes consistent with recent hysterectomy. There is no evidence of abscess or acute abnormality. 2. Diffuse colitis. 3. Large right hepatic hemangioma. This is noted on the prior ultrasound. 4. Small hiatal hernia. 5. Otherwise normal CT of the abdomen and pelvis Electronically Signed: Pablo Segal DO at 19:54 EST Reading Location ID and State: [facility] / [place] Tel [phone], Service support , Discharge Plan Triage Chief Complaint: Nausea/Vomiting ED Provider: Jose Man Dx/Rx/DC Orders Clinical Impression: Vomiting, Colitis Instructions: ED Understanding Colitis Prescriptions: Continued estradiol [Estrace] 0.01 % (0.1 mg/gram) cream 0.1 appful vaginal MOWEFR RF: 0 oxycodone-acetaminophen [Percocet] 5-325 mg tablet 1 tab PO Q6H PRN (Reason: pain) 7 Days Qty: 20 RF: 0 naproxen 500 MG tablet 500 mg PO BID PRN PRN (Reason: Pain) Qty: 30 RF: 1 cephalexin 500 MG capsule 500 mg PO Q12 3 Days Qty: 6 RF: 0 fluoxetine 40 mg capsule 40 mg PO DAILY RF: 0 potassium chloride [Klor-Con M20] 20 mEq Tablet,Er Particles/Crystals 20 meq PO BIDCM Qty: 60 RF: 0 Changed ondansetron HCl 8 mg tablet 8 mg PO Q8H PRN (Reason: Nausea) Qty: 20 RF: 0 Primary Care Provider: Ayan Rubio Referrals: Julisa Guerra MD [STAFF PHYSICIAN] - 1 Day (Call if you do not hear from your surgeon by noon) Ayan Rubio MD [Primary Care Provider] - Disposition Disposition: Home, Self Care
[2021-05-09] MEDS: Ondansetron 4 MG/2 ML Vial IV ×2 (15:49→16:49)
[2021-05-09 15:55] LABS: Absolute Lymphocyte Count 0.46 X10^3/uL (0.83-4.51); Absolute Neutrophil Count 13.1 X10^3/uL (2.0-7.7); Basophil# 0.02 X10^3/uL; Basophil% 0.1 % (0-1); Hematocrit 42.2 % (37-47); Hemoglobin 14.7 g/dL (12.0-15.0); Lymphocyte # 0.46 X10^3/ul (0.83-4.51); Lymphocyte % 3.2 % (19-41); Mean Corp Hgb Conc 34.8 g/dL (32-36); Mean Corpuscular Hgb 29.7 pg (27.0-32.0); Mean Corpuscular Volume 85.3 fL (81-99); Mean Platelet Vol. 9.4 fl (6.2-12.0); Monocyte# 0.51 X10^3/uL; Monocyte% 3.6 % (0-10); NRBC Flagged by Analyzer 0 % (0-5); Neutrophil # 13.11 X10^3/uL (2.7-7.7); Neutrophil % 92.3 % (47-70); POSITIVE DIFFERENTIAL YES; Platelet Count 251 K/mm3 (150-450); RBC Distribution Width CV 13.2 % (11.6-14.6); RBC Distribution Width SD 41.4 fl (35.1-43.9); Red Blood Count 4.95 M/mm3 (4.2-5.4); White Blood Count 14.2 K/mm3 (4.4-11.0)
[2021-05-09 15:57] LABS: Differential Indicated SCAN CRITERIA MET
[2021-05-09 16:13] LABS: Anion Gap 6 (5-15); BUN 10 mg/dL (7-18); BUN/Creat Ratio 11.5 RATIO (10-20); Calcium,Total 8.9 mg/dL (8.5-10.1); Chloride 101 mmol/L (98-107); Creatinine, Serum 0.87 mg/dL (0.55-1.02); EST Glomerular Filtration Rate 71 mL/min (>60); Est Glom Filt Rate - Afr Amer 85 mL/min (>60); Estimated Creatinine Clearance 56.17 ml/min; Glucose 140 mg/dL (74-106); Potassium 4.4 mmol/L (3.5-5.1); Sodium Level 132 mmol/L (136-145)
[2021-05-09 16:23] LABS: Differential Comment SCANNED
--- NOTE | 2021-05-09 18:45 | CT_ITS ---
STUDY: CT ABDOMEN AND PELVIS WITH CONTRAST REASON FOR EXAM: Female, 60 years old. History of hysterectomy 6 days ago. Nausea and vomiting beginning today. Lower abdominal pain. Known hemangioma. RADIATION DOSAGE (If Supplied By Facility): CTDIvol = ( 18.09 ) mGy, DLP = ( 853.66 ) mGycm TECHNIQUE: Transaxial images were obtained from the dome of the diaphragm to the symphysis pubis without oral contrast. IV 100mL Isovue-300 was administered. Sagittal and coronal images were reconstructed. Individualized dose optimization techniques were used for this CT. COMPARISON: Abdominal ultrasound, 02/19/2020. FINDINGS: The visualized lung bases are unremarkable. The visualized portions of the heart are within normal limits. Liver is normal in size and contour. There is a large hemangioma in the posterior right liver involving both segments 7 and 6. This measures approximately 10.2 x 4.9 x 5.1 cm. Liver is otherwise unremarkable. Normal gallbladder and extrahepatic biliary system. Normal spleen. Normal pancreas. Normal bilateral adrenal glands. Small simple cyst in the mid right kidney. Multiple small cortical cysts are seen in the left. There is no renal calculi or hydronephrosis. There is a vague area of low attenuation in a wedgelike distribution in the inferior aspect of the lower pole the left kidney. Normal ureters. Normal visualized stomach. Small hiatal hernia. The stomach is otherwise unremarkable. Normal ascending colon. There is evidence of wall thickening and luminal narrowing of the colon from the hepatic flexure to the rectosigmoid colon. There is a S anastomosis at this point. Findings suggest colitis. There is non-visualization of the appendix. Normal abdominal aorta. Normal inferior vena cava. Normal retroperitoneum. Normal urinary bladder. Mildly prominent vaginal cough with minimal adjacent stranding consistent with recent hysterectomy. There is no focal mass or fluid collection. There are soft tissue densities along both pelvic side alberto thought to represent retained ovaries. There is no pelvic lymphadenopathy. No free air or free fluid is seen within the peritoneal cavity. Abdominal wall is intact. There is irregular soft tissue density in the right inguinal area which may represent hematoma. There are diffuse degenerative changes of the visualized lumbar spine. CT/Abdomen/Pelvis W IV Cont ONLY IMPRESSION: 1. Postsurgical changes consistent with recent hysterectomy. There is no evidence of abscess or acute abnormality. 2. Diffuse colitis. 3. Large right hepatic hemangioma. This is noted on the prior ultrasound. 4. Small hiatal hernia. 5. Otherwise normal CT of the abdomen and pelvis Electronically Signed: Pablo Segal DO at 19:54 EST Reading Location ID and State: [facility] Tel [phone], Service support ,
[2021-05-09 21:09] VITALS: BP 165/89; PULSE 71; RESP 14; O2SAT 98
== END 2021-05-09 21:09 | disposition home or self-care (01) ==
PROVIDERS: Emergency Provider Emergency Medicine; PCP Family Medicine; Visit Provider Emergency Medicine
DX: K52.9 Noninfective gastroenteritis and colitis, unspecified (principal); I10 Essential (primary) hypertension; R19.7 Diarrhea, unspecified; F41.9 Anxiety disorder, unspecified; Z78.0 Asymptomatic menopausal state; Z79.1 Long term (current) use of non-steroidal anti-inflammatories (NSAID); Z79.899 Other long term (current) drug therapy; Z86.16 Personal history of COVID-19
CPT/HCPCS: 74022; 74177; 80048; 85025; 96361; 96374; 96376; 99283; Q9967; A4216; J2405

== ENCOUNTER 2021-05-13 17:17 | Emergency (ER) | payer OTHER, SELFPAY ==
[2021-05-13 17:17] VITALS: BP 149/81; PULSE 94; RESP 16; TEMP 36; O2SAT 98; BMI 31.8
--- NOTE | 2021-05-13 17:50 | ED.RN ---
TWO FAMILY MEMBERS REFUSED TO LISTEN TO TRIAGE NURSE, BOTH WENT INTO PT ROOM. THIS RN EXPLAINED THAT THERE IS ONLY ONE VISITOR. FAMILY PROCEEDED TO SAY THE WE ARE THE ONLY HOSPITAL LIKE THAT AND THAT THEY ARE TAKING THE PT ELSEWHERE. PT REFUSES TO LEAVE [facility]. SON STATES THEY ARE BUNCHES OF HYPOCRITES HERE WE CAN TAKE YOU ELSEWHERE WHERE THEY ARE NURSE AROUND THE CLOCK. THIS PLACE IS USELESS. BOTH FAMILY MEMBERS STATES THAT WE DONT DO ANYTHING HERE, THIS PLACE IS A JOKE.
--- NOTE | 2021-05-13 17:53 | ED.RN ---
PT IS APOLOGETIC TO THIS RN REGARDING HER FAMILY MEMBERS. FEMALE FAMILY MEMBER THAT STAYED IS RUDE TO PROVIDER [place] PROVIDER IS ASKING PT QUESTIONS. FAMILY MEMBER STATES SHE CANT TALK AND TRIED TALK OVER PT. PT IS WEAK BUT ABLE TO ANSWER QUESTIONS.
--- NOTE | 2021-05-13 18:11 | EDS_ITS ---
HPI HPI - GI History of Present Illness Chief Complaint: Nausea/Vomiting Informant: patient and family Limited: other (Daughter informed me that she would speak for her since she is unable to speak) Abdominal Pain/Flank Pain Onset: Hours (4 hours prior to presentation) Context: Sudden Onset Timing: Intermittent Quality: - (No pain just nausea and vomiting) Current Severity: Moderate Worsened by: - (Recent vaginal hysterectomy and bladder suspension) Nausea/Vomiting/Emesis GI Symptom: Positive for Nausea and Vomiting (10 times over the last 4 hours) Onset: Hours Quality: Negative for Nonbilious, Blood streaks, Coffee ground and Hematemesis Episodes: 10 Diarrhea/Melena/Hematochezia GI Symptom: Positive for Hematochezia; Negative for Diarrhea and Melena Onset: Today Associated Symptoms Associated Symptoms: Negative for Dysuria, Frequency and Hematuria LMP: Postmenopausal and status post hysterectomy Narrative Narrative: Patient is a 60-year-old woman who had a vaginal hysterectomy and bladder suspension by Dr. Den Collins and Dr. Julisa Guerra respectively who presents because of nausea and vomiting started 4 hours prior to presentation. Apparently this is her fourth visit since surgery. She was seen last week handed abdominal x-ray and CT which revealed no evidence of obstruction. Patient had a bowel movement at noon. She is passing gas. She states she feels miserable but denies pain. She denies dysuria, frequency, urgency or hematuria. She states she did have bright red blood when she had her bowel movement. She also has mild discomfort. Patient denies fever, chills night sweats. She denies HEENT, cardiac or respiratory symptoms. Prior similar symptoms: Yes Recent Illness/Hospitalization: Yes PFSH [facility] Medical History Abnormal Pap smear of cervix Anxiety Arthritis Back pain Bladder disease COVID Cystocele and rectocele with incomplete uterovaginal prolapse Depression Diverticulitis Hypertension Leg cramps Non-smoker Post-menopausal Shortness of breath on exertion Urethral cyst Wears glasses Home Medications estradiol [Estrace] 0.1 appful VAGINAL MOWEFR 04/26/21 [History Last Taken 05/01/21] fluoxetine 40 mg PO DAILY 05/07/21 [History Last Taken 1 Week Ago ~04/30/21] ondansetron HCl 8 mg PO Q8H PRN #20 tab 05/09/21 [Rx Last Taken Unknown] metoclopramide HCl 10 mg PO 4X/DAY PRN #16 tab 05/13/21 [Rx Last Taken Unknown] ondansetron 4 mg PO Q8H PRN PRN #10 tab 05/13/21 [Rx Last Taken Unknown] Allergy/AdvReac Type Severity Reaction Status Date / Time No Known Allergies Allergy Verified 05/09/21 15:13 Family History Father Cancer blood Uncle Cancer leukemia Surgical History History of total vaginal hysterectomy (TVH) Hx of colectomy Hx of colonoscopy Hx of unilateral salpingectomy Trigger finger Social History (Updated 05/13/21 @ 18:[address] Jan Harvey MD) household members: none Smoking Status: Never smoker alcohol intake: never substance use type: does not use caffeine: Yes what type of physical activity do you participate in: walking frequency: 3-4 times per week seatbelt use: always do you feel safe at home: Yes additional social history: Danilo- in August 2020 at Hospice Patient works at [employer] ED Constitutional Constitutional ED: Denies chills, fever(s), subjective, sweats or weight loss ENT ENT ED: Denies ear pain, rhinorrhea or sore throat Cardiovascular Cardiovascular: Denies chest pain, orthopnea, palpitations, paroxysmal nocturnal dyspnea or racing heartbeat Respiratory/Chest Respiratory/Chest: Denies cough, dyspnea, dyspnea on exertion, orthopnea, paroxysmal nocturnal dyspnea or sputum Gastrointestinal Gastrointestinal: Reports nausea and vomiting; Denies abdominal pain, constipation or diarrhea Genitourinary Genitourinary ED: Denies dysuria, hematuria or urinary frequency Musculoskeletal Musculoskeletal: Denies arthralgias, myalgias or neck pain Integumentary Denies abscess, Abrasions or rash Neurologic Neurologic: Denies headache(s), paresthesias or weakness Psychiatric Psychiatric: Denies anxiety, depression or suicidal thoughts Hematologic/Lymphatic Hematologic/Lymphatic: Denies easy bleeding, easy bruising or lymphadenopathy EXAM Physical Exam Const Vital Signs: 05/13/21 17:17 05/13/21 18:18 05/13/21 20:41 Temperature 96.8 F L Temperature Source Temporal Pulse Rate 94 96 Respiratory Rate 16 16 Blood Pressure 149/81 H 171/94 H 152/90 H Blood Pressure Mean 103 119 110 Pulse Ox 98 99 99 Oxygen Delivery Method Room Air Room Air Room Air Positive well nourished, well developed and obese General Appearance ED: well developed; Negative for NAD or pallor Nutritional Appearance: obese HEENT Reports moist mucous membranes normocephalic and atraumatic Eyes PERRL and EOMs intact bilaterally General Eye ED: Negative for pale conjunctiva or scleral icterus Neck no lymphadenopathy, supple and no JVD General: Negative for tenderness Resp normal respiratory effort and clear to auscultation bilaterally Cardio regular rate, regular rhythm, S1 normal heart sound, S2 normal heart sound and no murmurs GI non-tender, non-distended and no masses Inspection: Negative for abdominal distention Auscultation: normoactive bowel sounds Palpation: soft Back/Spine no CVA tenderness Cervical Spine: Negative for cervical spine tenderness Thoracic Spine / Upper Back: Negative for thoracic spinal tenderness Lumbar Spine / Lower Back: Negative for lumbar spinal tenderness Extremity full ROM General Extremety ED: Negative for edema or tenderness General Extremity: Negative for edema Neuro CN's II-XII intact bilaterally and no sensory deficits noted Sensorium / Orientation: alert and oriented to person Motor Exam: strength 5/5 throughout Psych mental status grossly normal and thought process normal Skin no wounds General Skin Exam: Negative for jaundice or pallor Lesions: no lesions Rashes: no rashes MDM MDM MDM Narrative Medical decision making narrative: Cyst back patient has nausea and vomiting due to recent surgery. She states she was prescribed Zofran tablets. She did not receive Zofran ODT. She states she cannot keep the medicine down to prevent her from having nausea and vomiting. She is also on pain medicine which may contribute to her nausea and vomiting. Will establish an IV. We will treat her nausea vomiting with Zofran. She received a 500 cc bolus. Will obtain basic metabolic panel to assess renal function and electrolytes. I was informed that the Zofran had no effect. She was prescribed Reglan IV push. She then complained of heartburn. She was treated with a GI cocktail. Patient has passed p.o. challenge. When she was reassessed at 2100 she was sitting up asking to go home. Will have her prescriptions filled here. Lab Data Labs: Laboratory Results - last 24 hr 05/13/21 17:26 Sodium 135 L Potassium 3.8 Chloride 102 Carbon Dioxide 29.0 Anion Gap 4 L BUN 19 H Creatinine 1.06 H Estim Creat Clear Calc 46.10 Est GFR (MDRD) Af Amer 68 Est GFR (MDRD) Non-Af 56 L BUN/Creatinine Ratio 17.9 Glucose 151 H Calcium 8.9 Discharge Plan Triage Chief Complaint: Nausea/Vomiting ED Provider: Jan Harvey Dx/Rx/DC Orders Prescriptions: New ondansetron [ondansetron] 4 MG tablet 4 mg PO Q8H PRN PRN (Reason: Nausea) Qty: 10 RF: 0 metoclopramide HCl [metoclopramide HCl] 10 MG tablet 10 mg PO 4X/DAY PRN (Reason: Headache) Qty: 16 RF: 0 No Action estradiol [Estrace] 0.01 % (0.1 mg/gram) cream 0.1 appful vaginal MOWEFR RF: 0 fluoxetine 40 mg capsule 40 mg PO DAILY RF: 0 ondansetron HCl 8 mg tablet 8 mg PO Q8H PRN (Reason: Nausea) Qty: 20 RF: 0 Primary Care Provider: Ayan Rubio Referrals: Ayan Rubio MD [Primary Care Provider] - Disposition Disposition: Home, Self Care
[2021-05-13 18:18] VITALS: BP 171/94; O2SAT 99
[2021-05-13] MEDS: Ondansetron 4 MG/2 ML Vial IV (18:20)
[2021-05-13 18:26] LABS: Anion Gap 4 (5-15); BUN 19 mg/dL (7-18); BUN/Creat Ratio 17.9 RATIO (10-20); Calcium,Total 8.9 mg/dL (8.5-10.1); Chloride 102 mmol/L (98-107); Creatinine, Serum 1.06 mg/dL (0.55-1.02); EST Glomerular Filtration Rate 56 mL/min (>60); Est Glom Filt Rate - Afr Amer 68 mL/min (>60); Glucose 151 mg/dL (74-106); Potassium 3.8 mmol/L (3.5-5.1); Sodium Level 135 mmol/L (136-145)
--- NOTE | 2021-05-13 18:27 | ED.RN ---
PT STATES THAT HER NAUSEA IS NOT REALLY BETTER.
[2021-05-13] MEDS: Metoclopramide 10 MG/2 ML Vial 5 MG IV (18:41)
[2021-05-13] MEDS: Mag Hydrox/Al Hydrox/Simeth 30 ML UDC PO (20:37)
[2021-05-13 20:41] VITALS: BP 152/90; PULSE 96; RESP 16; O2SAT 99
[2021-05-13 21:26] VITALS: BP 166/88; PULSE 89; RESP 16; O2SAT 98
== END 2021-05-13 21:28 | disposition home or self-care (01) ==
PROVIDERS: Emergency Provider Emergency Medicine; PCP Family Medicine; Visit Provider Emergency Medicine
DX: R11.2 Nausea with vomiting, unspecified (principal); K92.1 Melena; I10 Essential (primary) hypertension; R10.9 Unspecified abdominal pain; Z78.0 Asymptomatic menopausal state; R19.7 Diarrhea, unspecified; R12 Heartburn; Z86.16 Personal history of COVID-19; Z90.710 Acquired absence of both cervix and uterus
CPT/HCPCS: 80048; 96361; 96374; 96375; 99285; J7030; A4216; J2405

== ENCOUNTER 2021-05-16 14:04 | Outpatient (CLI) | payer OTHER, SELFPAY ==
[2021-05-16 16:03] LABS: Anion Gap 5 (5-15); BUN 14 mg/dL (7-18); BUN/Creat Ratio 15.4 RATIO (10-20); Chloride 107 mmol/L (98-107); Creatinine, Serum 0.91 mg/dL (0.55-1.02); EST Glomerular Filtration Rate 67 mL/min (>60); Est Glom Filt Rate - Afr Amer 81 mL/min (>60); Glucose 94 mg/dL (74-106); Potassium 3.6 mmol/L (3.5-5.1); Sodium Level 139 mmol/L (136-145)
== END 2021-05-16 23:59 | disposition home or self-care (01) ==
LOC: MTLAB 14:05
PROVIDERS: PCP Family Medicine; Referring Provider Urology; Visit Provider Urology
DX: E87.6 Hypokalemia (principal)
CPT/HCPCS: 36415; 80048

== ENCOUNTER 2022-01-21 07:40 | Emergency (ER) | payer OTHER, SELFPAY ==
[2022-01-21 07:41] VITALS: BP 218/105; PULSE 85; RESP 14; TEMP 36.8; O2SAT 98; BMI 32.8
--- NOTE | 2022-01-21 07:59 | CT_ITS ---
STUDY: CT BRAIN WITHOUT CONTRAST REASON FOR EXAM: Female, 61 years old. Vertigo RADIATION DOSAGE (If Supplied By Facility): CTDIvol = ( 47.06 ) mGy, DLP = ( 943.26 ) mGycm TECHNIQUE: Transaxial CT imaging of the brain was performed without administration of intravenous contrast material. Individualized dose optimization techniques were used for this CT. COMPARISON: Comparison is made with prior study dated 09/08/2019. FINDINGS: Normal soft tissue structures. Normal calvarium. Normal size ventricles and extra-axial spaces for the patient''s age. Normal white matter tracts of the cerebral hemispheres. Normal basal ganglia and thalami. Normal brainstem. Normal cerebellum. There is no intracranial hemorrhage. There are no findings of an acute ischemic infarction. Normal visualized paranasal sinuses. CT/Brain/Head without Contrast IMPRESSION: Normal unenhanced CT scan of the brain. Electronically Signed: Casey Trent MD at 8:46 EST ,
--- NOTE | 2022-01-21 07:59 | EKG12_ITS ---
Test Reason : PAIN Blood Pressure : / mmHG Vent. Rate : 063 BPM Atrial Rate : 063 BPM P-R Int : 214 ms QRS Dur : 080 ms QT Int : 450 ms P-R-T Axes : 072 050 067 degrees QTc Int : 460 ms Sinus rhythm with 1st degree A-V block Otherwise normal ECG Confirmed by JOSS ANDUJAR, MARINA ([id number]), news editor JEN URIBE ([id number]) on 01/22/2022 11:11:02 AM Referred By: Confirmed By:MARINA COREAS MD
--- NOTE | 2022-01-21 08:00 | EX.ED.DYSGE1 ---
HPI History of Present Illness Chief Complaint: Nausea/Vomiting Narrative Narrative: Patient presents with nausea and vomiting that started about 6 hours ago. She has no vertiginous symptoms although when she stands up she feels lightheaded and dizzy but she is not spinning and she does not feel off balance. She has no headache. She has no vision changes although she tells me it is more comfortable to keep her eyes closed. She is denying any abdominal pain. No diarrhea. PFSH PFSH Medical History Abnormal Pap smear of cervix Anxiety Arthritis Back pain Bladder disease COVID Cystocele and rectocele with incomplete uterovaginal prolapse Depression Diverticulitis Hypertension Leg cramps Non-smoker Post-menopausal Shortness of breath on exertion Urethral cyst Wears glasses Home Medications estradiol 0.01% (0.1 mg/gram) vaginal cream (Estrace) 0.1 appful vaginal MOWEFR 04/26/21 [History Last Taken 05/01/21] fluoxetine 40 mg capsule 40 mg PO DAILY DEPRESSION 05/07/21 [History Last Taken 1 Week Ago ~04/30/21] ondansetron HCl 8 mg tablet 8 mg PO Q8H PRN Nausea #20 tabs 05/09/21 [Rx Last Taken Unknown] metoclopramide HCl 10 mg tablet 10 mg PO 4X/DAY PRN Headache #16 tabs 05/13/21 [Rx Last Taken Unknown] ondansetron 4 mg disintegrating tablet 4 mg PO Q8H 5 days #15 tabs 01/21/22 [Rx Last Taken Unknown] Allergy/AdvReac Type Severity Reaction Status Date / Time No Known Allergies Allergy Verified 01/21/22 07:41 Family History Father Cancer blood Uncle Cancer leukemia Surgical History History of total vaginal hysterectomy (TVH) Hx of colectomy Hx of colonoscopy Hx of unilateral salpingectomy Trigger finger Social History household members: none Smoking Status: Never smoker alcohol intake: never substance use type: does not use caffeine: Yes what type of physical activity do you participate in: walking frequency: 3-4 times per week seatbelt use: always do you feel safe at home: Yes additional social history: Danilo- in August 2020 at Hospice Patient works at [employer] ROS ROS ED ROS Narrative Past medical history: Reviewed in [facility] and at bedside Medications: Reviewed Social history: Noncontributory Review of systems: All systems negative except as indicated General: No fever Eyes: No visual changes ENT: No upper airway congestion, normal voice Neck: No neck pain Cardiovascular: No chest pain Respiratory: No shortness of breath or cough Gastrointestinal: No abdominal pain. She has nausea and vomiting as in HPI. No diarrhea. Genitourinary: No dysuria Musculoskeletal: Denies myalgias no difficulty with ambulation Skin: No rash Neurological: No memory loss, confusion or any focal weakness. No vertigo. No disequilibrium. Psych: No recent behavioral changes Hematologic: No easy bleeding or easy bruising EXAM Physical Exam Narrative Exam Narrative: Physical exam General: Patient appears somewhat uncomfortable Head: Normocephalic, Atraumatic Eyes: Conjunctiva not pale ENT: Somewhat dry mucous membranes Neck: Supple, Nontender, No lymphadenopathy Cardiovascular: Regular rate, Regular rhythm Respiratory: No distress, CTA bilaterally Abdomen: Soft, Nontender, Nondistended Back: Nontender, Normal Inspection. Negative for: CVA tenderness Extremities: Nontender, No edema Skin: Normal color, No rash Neurological: Alert, Normal Strength, Normal Sensation. Normal cerebellar. Normal Romberg and normal gait without any kind of ataxia Psychological: Normal affect Const Vital Signs: 01/21/22 07:41 Temperature 98.2 F Temperature Source Temporal Pulse Rate 85 Respiratory Rate 14 Blood Pressure 218/105 H Blood Pressure Mean 142 Pulse Ox 98 Oxygen Delivery Method Room Air MDM MDM MDM Narrative Medical decision making narrative: Patient has a normal work-up. She significantly improved after IV fluids and Zofran. She now tells me that she has family members with similar symptoms. She tells me she did have a few episodes of watery diarrhea. This may be all GI related. I will discharge in stable condition if anything changes she is to return. Lab Data Labs: Laboratory Results - last 24 hr 01/21/22 01/21/22 08:22 08:22 WBC 7.8 RBC 4.93 Hgb 14.3 Hct 43.7 MCV 88.6 MCH 29.0 MCHC 32.7 RDW Std Deviation 43.0 RDW Coeff of Jaylyn 13.2 Plt Count 260 MPV 9.5 Immature Gran % (Auto) 0.300 Neut % (Auto) 87.2 H Lymph % (Auto) 9.1 L [place] % (Auto) 2.8 Eos % (Auto) 0.1 Baso % (Auto) 0.5 Absolute Neuts (auto) 6.8 Absolute Lymphs (auto) 0.71 L Nucleated RBC % 0 Sodium 140 Potassium 4.1 Chloride 106 Carbon Dioxide 26.0 Anion Gap 8 BUN 16 Creatinine 0.84 Estim Creat Clear Calc 57.44 Est GFR (MDRD) Af Amer 88 Est GFR (MDRD) Non-Af 73 BUN/Creatinine Ratio 19.0 Glucose 153 H Calcium 8.7 Total Bilirubin 0.40 AST 23 ALT 26 Alkaline Phosphatase 81 Troponin I High Sens 7 Total Protein 7.2 Albumin 3.9 Globulin 3.3 Albumin/Globulin Ratio 1.2 Radiography Diagnostic Testing: Clinical Impression(s) from Imaging Studies Brain CT 01/21/22 07:59 IMPRESSION: Normal unenhanced CT scan of the brain. Electronically Signed: Casey Trent MD at 8:46 EST , EKG Initial EKG: Comments: Sinus rhythm with a rate of 63. ID interval is slightly prolonged at 214. QTc intervals 460. No ischemic changes. Interpreted by emergency doctor. Discharge Plan Triage Chief Complaint: Nausea/Vomiting ED Provider: [place] Dx/Rx/DC Orders Clinical Impression: Light-headedness, Acute dehydration, Nausea & vomiting Instructions: ED Dehydration (Adult), ED Dizziness, Uncertain Cause Prescriptions: New ondansetron 4 mg tablet,disintegrating 4 mg PO Q8H 5 Days Qty: 15 0RF No Action estradiol [Estrace] 0.01 % (0.1 mg/gram) cream 0.1 appful vaginal MOWEFR fluoxetine 40 mg capsule 40 mg PO DAILY Label Comments: TAKE 1 CAPSULE BY MOUTH EVERY DAY ondansetron HCl 8 mg tablet 8 mg PO Q8H PRN (Reason: Nausea) Qty: 20 0RF metoclopramide HCl [metoclopramide HCl] 10 MG tablet 10 mg PO 4X/DAY PRN (Reason: Headache) Qty: 16 0RF Primary Care Provider: Ayan Rubio Referrals: Ayan Rubio MD [Primary Care Provider] - 3-5 Days Disposition Disposition: Home, Self Care
[2022-01-21] MEDS: Ondansetron 4 MG/2 ML Vial IV (08:18)
[2022-01-21] MEDS: 0.9% Normal Saline 1,000 ML 1000 ML IV (08:18)
[2022-01-21 08:31] LABS: Absolute Lymphocyte Count 0.71 X10^3/uL (0.83-4.51); Absolute Neutrophil Count 6.8 X10^3/uL (2.0-7.7); Basophil# 0.04 X10^3/uL; Basophil% 0.5 % (0-1); Eosinophil# 0.01 X10^3/uL; Eosinophils% 0.1 % (0-5); Hematocrit 43.7 % (37-47); Hemoglobin 14.3 g/dL (12.0-15.0); Lymphocyte # 0.71 X10^3/ul (0.83-4.51); Lymphocyte % 9.1 % (19-41); Mean Corp Hgb Conc 32.7 g/dL (32-36); Mean Corpuscular Volume 88.6 fL (81-99); Mean Platelet Vol. 9.5 fl (6.2-12.0); Monocyte# 0.22 X10^3/uL; Monocyte% 2.8 % (0-10); NRBC Flagged by Analyzer 0 % (0-5); Neutrophil # 6.78 X10^3/uL (2.7-7.7); Neutrophil % 87.2 % (47-70); Platelet Count 260 K/mm3 (150-450); RBC Distribution Width CV 13.2 % (11.6-14.6); Red Blood Count 4.93 M/mm3 (4.2-5.4); White Blood Count 7.8 K/mm3 (4.4-11.0)
[2022-01-21 08:48] LABS: ALB/GLOB Ratio 1.2 RATIO (0.9-2.4); AST(SGOT) 23 U/L (15-37); Alanine Aminotransfer ALT/SGPT 26 U/L (13-56); Albumin, Serum 3.9 g/dL (3.2-5.0); Alkaline Phosphatase 81 U/L (45-117); Anion Gap 8 (5-15); BUN 16 mg/dL (7-18); Calcium,Total 8.7 mg/dL (8.5-10.1); Chloride 106 mmol/L (98-107); Creatinine, Serum 0.84 mg/dL (0.55-1.02); EST Glomerular Filtration Rate 73 mL/min (>60); Est Glom Filt Rate - Afr Amer 88 mL/min (>60); Estimated Creatinine Clearance 57.44 ml/min; Globulin 3.3 g/dL (2.2-4.2); Glucose 153 mg/dL (74-106); Potassium 4.1 mmol/L (3.5-5.1); Protein, Total 7.2 g/dL (6.4-8.2); Sodium Level 140 mmol/L (136-145); Troponin-I HS 7 pg/mL (3.0-54.0)
== END 2022-01-21 10:51 | disposition home or self-care (01) ==
PROVIDERS: Emergency Provider Emergency Medicine; PCP Family Medicine; Visit Provider Emergency Medicine
DX: R42 Dizziness and giddiness (principal); R11.2 Nausea with vomiting, unspecified; E86.0 Dehydration; R19.7 Diarrhea, unspecified; I10 Essential (primary) hypertension; Z79.899 Other long term (current) drug therapy
CPT/HCPCS: 70450; 80053; 84484; 85025; 93005; 96361; 96374; 99283; J7030; A4216; J2405

== ENCOUNTER → 2022-03-04 | Outpatient (CLI) | payer OTHER, SELFPAY ==
--- NOTE | 2022-03-04 15:38 | BI_ITS ---
MAMMOGRAPHY - BILATERAL SCREENING REASON FOR EXAM: Female, 61 years old. Routine annual screening examination. PERTINENT HISTORY: Non-contributory. Prior left needle breast biopsy. TECHNIQUE: Digital bilateral breast ibrahima (3D mammographic acquisition) in the CC and MLO projections. 2-D mediolateral oblique (MLO) and craniocaudad (CC) views of both breasts were obtained. CAD: Full Field Digital Mammography with Computer Added Detection was performed. COMPARISON: Comparison is made with prior study dated 01/17/2021 and 01/09/2020. FINDINGS: Breast Composition: The breasts are heterogeneously dense, which may obscure small masses. There are no dominant masses or suspicious calcifications. A tissue clip marker is seen in the retroareolar region of the left breast. Stable small benign appearing bilateral axillary lymph nodes. Stable calcified nodule in the upper slightly lateral aspect of the right breast. No other significant abnormalities are identified. There has been no significant change since the prior study. BI/SCRN MAMM (CAD)W/IBRAHIMA BILAT IMPRESSION: Stable bilateral screening mammogram. Yearly follow-up mammogram recommended. (A) ASSESSMENT CATEGORY: BIRADS Category 2: Benign. A letter regarding these results will be sent to the patient by the facility within 30 days. Approximately 10% of breast cancers are not detected by mammography. A normal mammogram should not delay biopsy of a clinically suspicious abnormality. [id number] Electronically Signed: Csaey Trent MD at 8:21 EST ,
== END | disposition home or self-care (01) ==
LOC: OPBI 15:37
PROVIDERS: PCP Family Medicine; Visit Provider Obstetrics & Gynecology
DX: Z12.31 Encounter for screening mammogram for malignant neoplasm of breast (principal)
CPT/HCPCS: 77063; 77067

== ENCOUNTER 2022-03-08 14:09 | Emergency (ER) | payer OTHER, SELFPAY ==
[2022-03-08 14:10] VITALS: BP 142/78; PULSE 78; RESP 16; TEMP 36.3; O2SAT 99; BMI 33.6
--- NOTE | 2022-03-08 14:24 | RAD_ITS ---
STUDY: X-RAY CHEST REASON FOR EXAM: Female, 61 years old. Stroke TECHNIQUE: Single AP portable view of the chest. COMPARISON: May 09, 2021 chest x-ray FINDINGS: The lungs are clear and expanded. There is no demonstrated pleural abnormality. Normal size heart. Normal mediastinum and graham. Normal visualized pulmonary arteries. There is atherosclerotic tortuosity of the aortic arch and descending thoracic aorta. There are diffuse degenerative changes of the visualized thoracic spine. Normal visualized ribs, clavicles, and shoulders. There is no demonstrated abnormality of the visualized soft tissue structures of the upper abdomen. RAD/Chest 1 View (Portable) IMPRESSION: Stable chest no visualized focal infiltrate. Electronically Signed: Sudha Tierney MD at 15:24 EST ,
[2022-03-08 15:02] VITALS: O2SAT 100
[2022-03-08 15:22] LABS: Absolute Lymphocyte Count 0.88 X10^3/uL (0.83-4.51); Absolute Neutrophil Count 8.5 X10^3/uL (2.0-7.7); Basophil# 0.06 X10^3/uL; Basophil% 0.6 % (0-1); Eosinophil# 0.11 X10^3/uL; Eosinophils% 1.1 % (0-5); Hemoglobin 14.4 g/dL (12.0-15.0); Lymphocyte # 0.88 X10^3/ul (0.83-4.51); Lymphocyte % 8.7 % (19-41); Mean Corp Hgb Conc 33.5 g/dL (32-36); Mean Corpuscular Hgb 29.9 pg (27.0-32.0); Mean Corpuscular Volume 89.4 fL (81-99); Monocyte# 0.56 X10^3/uL; Monocyte% 5.5 % (0-10); NRBC Flagged by Analyzer 0 % (0-5); Neutrophil # 8.46 X10^3/uL (2.7-7.7); Neutrophil % 83.7 % (47-70); Platelet Count 237 K/mm3 (150-450); RBC Distribution Width SD 42.9 fl (35.1-43.9); Red Blood Count 4.81 M/mm3 (4.2-5.4); White Blood Count 10.1 K/mm3 (4.4-11.0)
[2022-03-08 15:37] LABS: Anion Gap 6 (5-15); BUN 14 mg/dL (7-18); BUN/Creat Ratio 15.6 RATIO (10-20); Calcium,Total 8.9 mg/dL (8.5-10.1); Chloride 104 mmol/L (98-107); EST Glomerular Filtration Rate 68 mL/min (>60); Est Glom Filt Rate - Afr Amer 82 mL/min (>60); Estimated Creatinine Clearance 53.61 ml/min; Glucose 148 mg/dL (74-106); Potassium 3.5 mmol/L (3.5-5.1); Sodium Level 138 mmol/L (136-145)
[2022-03-08 15:38] LABS: International Normalized Ratio 1.1; Partial Thromboplast Time 24.8 Seconds (24.1-36.2); Prothrombin Time (Protime)PT. 13.6 SECONDS (11.7-14.9)
--- NOTE | 2022-03-08 15:51 | EDS_ITS ---
HPI History of Present Illness Chief Complaint: Dizziness Narrative Narrative: 61-year-old female presenting with dizziness. She describes it as vertiginous dizziness. She states he was working at the [employer] and had lunch and then stood up and felt dizzy. She states has had 4 episodes of this since January. She was seen in the ER and states she was given IV fluids previously. She states she was not given a formal diagnosis of positional vertigo. She states she has not followed up with anybody since that time. She does state that she had some nausea and vomiting of associated with her dizziness today. She denies any head injury. She states he is only on a medication for depression. No chest pain, palpitations, shortness of breath. No abdominal pain. No urinary or vaginal complaints PFSH PFSH Medical History Abnormal Pap smear of cervix Anxiety Arthritis Back pain Bladder disease COVID Cystocele and rectocele with incomplete uterovaginal prolapse Depression Diverticulitis Hypertension Leg cramps Non-smoker Post-menopausal Shortness of breath on exertion Urethral cyst Wears glasses Home Medications fluoxetine 40 mg capsule 40 mg PO DAILY DEPRESSION 05/07/21 [History Last Taken 1 Week Ago ~04/30/21] ondansetron 4 mg disintegrating tablet 4 mg PO Q8H 5 days #15 tabs 01/21/22 [Rx Last Taken Unknown] meclizine 25 mg chewable tablet 25 mg PO TID PRN dizziness #30 tabs 03/08/22 [Rx Last Taken Unknown] Allergy/AdvReac Type Severity Reaction Status Date / Time No Known Allergies Allergy Verified 03/08/22 14:10 Family History Father Cancer blood Uncle Cancer leukemia Surgical History History of total vaginal hysterectomy (TVH) Hx of colectomy Hx of colonoscopy Hx of unilateral salpingectomy Trigger finger Social History household members: none Smoking Status: Never smoker alcohol intake: never substance use type: does not use caffeine: Yes what type of physical activity do you participate in: walking frequency: 3-4 times per week seatbelt use: always do you feel safe at home: Yes additional social history: Danilo- in August 2020 at Hospice Patient works at [employer] ROS ROS ED Constitutional Constitutional ED: Denies chills or fever(s) Eyes Eyes: Reports other Details: Vertiginous dizziness ENT ENT ED: Denies ear pain or rhinorrhea Cardiovascular Cardiovascular: Denies chest pain Respiratory/Chest Respiratory/Chest: Denies cough or dyspnea Gastrointestinal Gastrointestinal: Reports nausea and vomiting; Denies abdominal pain Genitourinary Genitourinary ED: Denies dysuria or hematuria Musculoskeletal Musculoskeletal: Denies arthralgias or back pain Integumentary Denies abscess or Abrasions Neurologic Neurologic: Denies headache(s) or paresthesias Psychiatric Psychiatric: Denies anxiety or depression EXAM Physical Exam Const Vital Signs: 03/08/22 14:10 03/08/22 15:02 Temperature 97.4 F L Temperature Source Temporal Pulse Rate 78 Respiratory Rate 16 Blood Pressure 142/78 H Blood Pressure Mean 99 Pulse Ox 99 100 Oxygen Delivery Method Room Air Room Air Positive well nourished General Appearance ED: Negative for pallor HEENT Reports moist mucous membranes HEENT Narrative: Positive [place]-Hallpike. Nystagmus noted on exam Negative for trauma Eyes PERRL and EOMs intact bilaterally Chest Wall inspection of chest normal and palpation of chest normal Resp normal respiratory effort and clear to auscultation bilaterally Auscultation: Negative for rales, rhonchi or wheezes Cardio regular rate and regular rhythm GI normal to inspection, nondistended, normoactive bowel sounds Neuro oriented x3 and CN's II-XII intact bilaterally Sensorium / Orientation: alert Motor Exam: strength 5/5 throughout Psych mental status grossly normal Skin no rashes or lesions noted General Skin Exam: Negative for jaundice or pallor MDM MDM MDM Narrative Medical decision making narrative: Patient presenting with dizziness. She states it is acute onset today at work. She was transported by EMS. On examination she has a positive Ramone-Hallpike. She was medicated with meclizine and Phenergan. Blood work is obtained as a protocol due to her heavy our volumes prior to the patient being seen. Her CBC and BMP are unremarkable. Chest x-ray on my interpretation shows no acute cardiopulmonary process. Protocol EKG was also performed and on my interpretation this is a normal sinus rhythm with a ventricular to 66 bpm without sign of ischemic change or dysrhythmia. Radiologist interprets this and agrees. On reevaluation patient feels improved. I will give her a prescription for meclizine for home. She will follow-up with ENT. Impression: 1. Benign positional vertigo 2. Nausea/vomiting Lab Data Attestation: I reviewed the patient's lab results. Labs: Laboratory Results - last 24 hr 03/08/22 03/08/22 03/08/22 14:24 14:24 14:24 WBC 10.1 RBC 4.81 Hgb 14.4 Hct 43.0 MCV 89.4 MCH 29.9 MCHC 33.5 RDW Std Deviation 42.9 RDW Coeff of Jaylyn 13.0 Plt Count 237 MPV 9.0 Immature Gran % (Auto) 0.400 Neut % (Auto) 83.7 H Lymph % (Auto) 8.7 L [place] % (Auto) 5.5 Eos % (Auto) 1.1 Baso % (Auto) 0.6 Absolute Neuts (auto) 8.5 H Absolute Lymphs (auto) 0.88 Nucleated RBC % 0 PT 13.6 INR 1.1 APTT 24.8 Sodium 138 Potassium 3.5 Chloride 104 Carbon Dioxide 28.0 Anion Gap 6 BUN 14 Creatinine 0.90 Estim Creat Clear Calc 53.61 Est GFR (MDRD) Af Amer 82 Est GFR (MDRD) Non-Af 68 BUN/Creatinine Ratio 15.6 Glucose 148 H Calcium 8.9 Radiography Diagnostic Testing: Clinical Impression(s) from Imaging Studies Chest X-Ray 03/08/22 14:24 IMPRESSION: Stable chest no visualized focal infiltrate. Electronically Signed: Sudha Tierney MD at 15:24 EST , Discharge Plan Triage Chief Complaint: Dizziness ED Provider: Robert Lund Dx/Rx/DC Orders Instructions: ED BPV Vertigo Prescriptions: New meclizine 25 mg tablet,chewable 25 mg PO TID PRN (Reason: dizziness) Qty: 30 0RF No Action fluoxetine 40 mg capsule 40 mg PO DAILY Label Comments: TAKE 1 CAPSULE BY MOUTH EVERY DAY ondansetron 4 mg tablet,disintegrating 4 mg PO Q8H 5 Days Qty: 15 0RF Primary Care Provider: Ayan Rubio Referrals: Ayan Rubio MD [Primary Care Provider] - Disposition Disposition: Home, Self Care
[2022-03-08] MEDS: proMETHazine 25 MG/ML Syringe 12.5 MG IM (16:05)
[2022-03-08] MEDS: Meclizine HCl 25 MG Tablet PO (16:05)
== END 2022-03-08 18:37 | disposition home or self-care (01) ==
PROVIDERS: Emergency Provider Student in an Organized Health Care Education/Training Program; PCP Family Medicine; Visit Provider Student in an Organized Health Care Education/Training Program
DX: H81.10 Benign paroxysmal vertigo, unspecified ear (principal); R11.2 Nausea with vomiting, unspecified; I10 Essential (primary) hypertension; Z79.899 Other long term (current) drug therapy
CPT/HCPCS: 71045; 80048; 85025; 85610; 85730; 93005; 96372; 99285; A4216

== ENCOUNTER 2022-10-21 08:13 | Outpatient (RCR) | payer OTHER, SELFPAY ==
--- NOTE | 2022-10-21 10:51 | HP.PTEVAL_ITS ---
Patient's Visit Information Visit Information Visit Information: GEORGE BURLESON is a 62 year old F referred to Physical Therapy by ELBERT Ross with a diagnosis of vertigo. Date of Evaluation: 10/21/22 Physical Therapist: ASIM Gutiérrez Visit Plan Plan: At this point in time, I could not elicit the patients sx or any kind of dizziness. Her balance is normal as well. Looking at her sx: episodic and has had at least 5 episodes, nausea and vomiting, VEGAS (generally present but not always/but VEGAS does not have to be present all the time), light sensitivity, noise sensitivity, feeling of spinning that last hours, and the fact that these episodes are affecting her work and daily life, I would consider vestibular migraines??? Neuro consult??? I will be discharging her at this time as I do not feel her sx are a PT issue at this time. Subjective Subjective: This has been going on since last Dec. She wakes up around 2 am to go to the bathroom and when she wakes up everything is dizzy and then she sweats and then vomits and this will go on 1/2 day to whole day. The room is not stop spinning for an hour and she has to sit still. She notices that if overheaded it will make it worse. She lives by herself. This happens every month since Dec, in the middle of the night. She had this happen in Feb during the day at work. She works at [employer] and went via [employer]. She did not have it in September. She sometimes has a VEGAS with it. She has been to and was put on meclazene. It helps. The weather is making her feel more VEGAS like. She has no dizziness. She had a hysterectomy in 2021. She has cracking in her neck and hard time to turn her head. She has had VEGAS. No h/o migraines. Lights def bother her but majorly bother her when she is having her episodes as well as loud noises. Objective Objective: FGA: CATSIB: 120/120 VOR: Sitting smooth pursuit both vertical and horizontal X 30 seconds with no dizziness Sitting head and eyes move together from one target to another X 30 seconds with no dizziness Pt is able to walk with horizontal and vertical head turns with no dizziness and not LOB Balance/Special Test Scores Functional Gait Assessment Score: 27 % Disability: 10.0000 Dizziness Score: 36 Lower Extremity Functional Score: 26 Anticipated Interventions Text: Thank you for the opportunity to evaluate your patient. For Medicare and Medicare HMO plans, please review the plan of care and approve it. It will need to be FAXED BACK to us at [phone] for Medicare purposes. For Medicare only, by signing this I certify the plan of care. Please let me know if there are questions or concerns regarding this plan of care. Physician Signature: Date:
--- NOTE | 2022-10-21 10:51 | HP.PTDCSUM ---
Discharge Summary D/C summary: It has been my pleasure to treat GEORGE BURLESON referred by ELBERT Ross, with the diagnosis of vertigo for a total of 1 visit(s). Discharge Date: 10/21/22 Please see the following information for a summary of their discharge status. Plan Plan: At this point in time, I could not elicit the patients sx or any kind of dizziness. Her balance is normal as well. Looking at her sx: episodic and has had at least 5 episodes, nausea and vomiting, VEGAS (generally present but not always/but VEGAS does not have to be present all the time), light sensitivity, noise sensitivity, feeling of spinning that last hours, and the fact that these episodes are affecting her work and daily life, I would consider vestibular migraines??? Neuro consult??? I will be discharging her at this time as I do not feel her sx are a PT issue at this time. D/C Information Discharge Comments: DC PT back to physician d/c sentence: If there are questions or concerns regarding this patient's physical therapy, please feel free to call me at [phone]. Thank you for the referral of this patient. Sincerely, Annel Brown, MPT Balance/Gait/Functional tests Balance/Special Test Scores Functional Gait Assessment Score: 27 % Disability: 10.0000 Dizziness Score: 36 Lower Extremity Functional Score: 26
== END 2022-10-21 10:55 | disposition home or self-care (01) ==
LOC: PT 08:13
PROVIDERS: PCP Family Medicine; Referring Provider Registered Nurse; Visit Provider Registered Nurse
DX: R42 Dizziness and giddiness (principal)
CPT/HCPCS: 97161

== ENCOUNTER → 2023-03-11 | Outpatient (CLI) | payer OTHER, SELFPAY ==
--- NOTE | 2023-03-11 09:00 | BI_ITS ---
MAMMOGRAPHY - BILATERAL SCREENING 3-D TOMOSYNTHESIS REASON FOR EXAM: Female, 62 years old. Routine annual screening mammogram. PERTINENT HISTORY: Prior left needle biopsy. TECHNIQUE: 2-D mammograms and 3-D Tomosynthesis of the breast (s) were performed. CAD was performed. COMPARISON: March 04, 2022, January 17, 2021 FINDINGS: Stable scattered fibroglandular densities. Normal lymph nodes, scattered benign calcifications and left tissue clip marker, unchanged. No dominant masses, suspicious microcalcifications, asymmetries, skin thickening or nipple retraction. BI/SCRN MAMM (CAD)W/IBRAHIMA BILAT IMPRESSION: No interval change and no mammographic signs of malignancy. Routine yearly mammogram recommended. ASSESSMENT CATEGORY: BIRADS Category 2: Benign. A letter regarding these results will be sent to the patient by the facility within 30 days. FOLLOW UP RECOMMENDATION: Yearly follow up mammogram recommended. (A) Approximately 10% of breast cancers are not detected by mammography. A normal mammogram should not delay biopsy of a clinically suspicious abnormality. Electronically Signed: Heriberto Davies MD at 13:42 EST ,
== END | disposition home or self-care (01) ==
LOC: OPBI 08:58
PROVIDERS: PCP Family Medicine; Referring Provider Obstetrics & Gynecology; Visit Provider Obstetrics & Gynecology
DX: Z12.31 Encounter for screening mammogram for malignant neoplasm of breast (principal)
CPT/HCPCS: 77063; 77067

== ENCOUNTER 2024-03-06 14:58 | Emergency (ER) | payer OTHER, SELFPAY ==
[2024-03-06 15:00] VITALS: BP 149/88; PULSE 125; RESP 20; TEMP 36.3; O2SAT 95; BMI 34.4
--- NOTE | 2024-03-06 15:14 | EX.ED.GENINJ ---
HPI History of Present Illness Chief Complaint: Nausea/Vomiting/Diarrhea Narrative Narrative: Chief complaint and HPI: Nausea, vomiting, diarrhea. 63-year-old female with past medical history of vertigo presents for evaluation of nausea, vomiting, diarrhea. Onset of symptoms was 10 AM this morning. Patient states that influenza has been going around her work. Emesis and diarrhea is nonbloody. Associated symptom is subjective fevers. She denies any URI symptoms, cough, shortness of breath, chest pain, dysuria. Endorses some vague abdominal pain that began after the vomiting and diarrhea. Review of systems: See HPI Medications: As listed on the chart Allergies: As listed on the chart PFSH: Per chart Vital signs: As listed on the chart. Reviewed. Physical exam: Gen: A&O x3, NAD Head: Normocephalic, atraumatic Eyes: No sclera icterus, conjunctiva clear ENT: Mildly dry mucous membranes Neck: Trachea midline, No JVD CV: RRR, no murmurs, no peripheral edema Resp: Lungs CTA BL, no w/r/c GI: Abd soft, non-distended, non-tender, no r/r/g : No CVA tenderness Musc: Full ROM, no deformity Skin: Warm, dry Neuro: Alert, oriented, grossly intact, sensation intact Psych: Cooperative, appropriate mood and affect [facility] Medical History Abnormal Pap smear of cervix Anxiety Arthritis Back pain Bladder disease COVID Cystocele and rectocele with incomplete uterovaginal prolapse Depression Diverticulitis Hypertension Leg cramps Non-smoker Post-menopausal Shortness of breath on exertion Urethral cyst Wears glasses Home Medications ?Medication ?Instructions ?Recorded ?Last Taken ?Type fluoxetine 40 mg capsule 40 mg PO DAILY DEPRESSION 05/07/21 1 Week Ago History ~04/30/21 ondansetron 4 mg disintegrating 4 mg PO Q8H 5 days #15 tabs 01/21/22 Unknown Rx tablet meclizine 25 mg chewable tablet 25 mg PO TID PRN dizziness #30 tabs 03/08/22 Unknown Rx cephalexin 500 mg capsule 500 mg PO BID 7 days #14 caps 03/06/24 Unknown Rx ondansetron 4 mg disintegrating 4 mg PO Q8H PRN PRN Nausea #10 tabs 03/06/24 Unknown Rx tablet Allergy/AdvReac Type Severity Reaction Status Date / Time No Known Allergies Allergy Verified 03/06/24 15:00 Family History Father Cancer blood Uncle Cancer leukemia Surgical History History of total vaginal hysterectomy (TVH) Hx of colectomy Hx of colonoscopy Hx of unilateral salpingectomy Trigger finger Social History household members: none Smoking Status: Never smoker alcohol intake: never substance use type: does not use caffeine: Yes what type of physical activity do you participate in: walking frequency: 3-4 times per week seatbelt use: always do you feel safe at home: Yes additional social history: Danilo- in August 2020 at Hosp[facility] Patient works at [employer] EXAM Physical Exam Const Vital Signs: 03/06/24 15:00 03/06/24 17:00 Temperature 97.3 F L Temperature Source Temporal Pulse Rate 125 H 83 Respiratory Rate 20 H 16 Blood Pressure 149/88 H 134/68 H Blood Pressure Mean 108 90 Pulse Ox 95 98 Oxygen Delivery Method Room Air Room Air MDM MDM MDM Narrative Medical decision making narrative: 63-year-old female with past medical history of vertigo presents for evaluation of nausea, vomiting, diarrhea. Onset was 10 AM. Differential diagnosis includes but is not limited to viral syndrome, electrolyte abnormality, SINDI, UTI. Suspect less likely pancreatitis or intra-abdominal pathology. Abdominal exam is benign therefore imaging deferred at this time. NS bolus, Zofran ordered for symptoms. Abdominal labs and viral testing ordered. CBC with mild leukocytosis of 12.1. Patient has hemoconcentration which is likely secondary to her nausea and vomiting with dehydration. CMP with mild renal insufficiency of 1.06. No significant electrolyte abnormality. No transaminitis. Lipase unremarkable. EKG shows atrial fibrillation with RVR. Heart rate 120. I do suspect that her tachycardia is secondary to her dehydration. Patient's [id number] is 1 therefore no anticoagulation is needed at this time. Will perform further cardiac workup for new onset A-fib. Chest x-ray, troponin, BNP, magnesium level, TSH ordered. Shortly after ordering cardiac workup, patient converted to normal sinus rhythm. Heart rate 76. COVID, flu, RSV negative. Urine is positive for ketones. This can be seen with dehydration. She has blood in her urine as well as 1+ bacteria. No leuk esterase. Possible UTI. Urine culture sent. Rocephin ordered. Will add on CT abdomen pelvis to assess for urolithiasis given the blood in patient's urine with her nausea and vomiting. Magnesium level unremarkable. BNP unremarkable. TSH is mildly low at 0.352. She has normal free T4. She needs to follow-up outpatient for her low TSH. CT abdomen pelvis shows a right lobe hemangioma with known rectosigmoid anastomosis. Diverticulosis without diverticulitis. No urolithiasis. Troponin unremarkable x 2. Patient has remained in normal sinus rhythm. She is not endorsing any chest pain. She was able to tolerate p.o. intake. At this point in time, I suspect that symptoms are likely secondary to viral illness versus possible UTI. Cardiology was consulted due to her paroxysmal atrial fibrillation. Recommendation is for Holter monitor outpatient. This was ordered. Follow-up in their clinic. No further workup or medications needed. Patient confirmed understanding. She will be given Zofran and Keflex prescription. Follow-up with PCP. Return precautions explained. Patient stable to discharge home. EKG: Interpreted by me/EM physician: EKG shows atrial fibrillation with RVR. Heart rate 120. On chart review, patient has no history of atrial fibrillation. Her previous EKG from 2021 shows normal sinus rhythm. There are nonspecific ST changes. Repeat EKG shows normal sinus rhythm without any acute ischemic changes. Heart rate 76. Diagnostic: Interpreted by me/EM physician: Chest x-ray without pneumonia, effusion, cardiomegaly, pneumothorax Impression: 1. Nausea and vomiting 2. Diarrhea 3. Dehydration 4. Possible UTI 5. Paroxysmal atrial fibrillation 6. Abnormal thyroid function 7. Incidental hemangioma Lab Data Labs: Laboratory Results - last 24 hr 03/06/24 03/06/24 03/06/24 15:26 15:52 16:05 WBC 12.1 H RBC 5.41 H Hgb 15.4 H Hct 47.8 H MCV 88.4 MCH 28.5 MCHC 32.2 RDW Std Deviation 43.0 RDW Coeff of Jaylyn 13.2 Plt Count 259 MPV 9.2 Immature Gran % (Auto) 0.300 Neut % (Auto) 91.6 H Lymph % (Auto) 2.8 L [place] % (Auto) 4.1 Eos % (Auto) 0.8 Baso % (Auto) 0.4 Absolute Neuts (auto) 11.1 H Absolute Lymphs (auto) 0.34 L Nucleated RBC % 0 Sodium 141 Potassium 3.5 Chloride 106 Carbon Dioxide 26.0 Anion Gap 9 BUN 17 Creatinine 1.06 H Estim Creat Clear Calc 56.51 Est GFR (MDRD) Af Amer 67 Est GFR (MDRD) Non-Af 55 L BUN/Creatinine Ratio 16.0 Glucose 190 H Calcium 9.6 Magnesium 2.1 Total Bilirubin 0.70 AST 22 ALT 21 Alkaline Phosphatase 90 Troponin I High Sens 4 B-Natriuretic Peptide Total Protein 7.7 Albumin 4.3 Globulin 3.4 Albumin/Globulin Ratio 1.3 Lipase 38 TSH 0.352 L Free T4 Urine Color Yellow Urine Clarity Clear Urine pH 6.0 Ur Specific Industry 1.020 Urine Protein 30 H Urine Glucose (UA) 50 H Urine Ketones 150 A* Urine Occult Blood 150 H Urine Nitrite Negative Urine Bilirubin Negative Urine Urobilinogen Normal Ur Leukocyte Esterase Negative Urine RBC 50-100 SEEN Urine WBC 0-5 SEEN Ur Squamous Epith Cells 0-5 SEEN Urine Bacteria 1+ Hyaline Casts 0-5 SEEN Urine Mucus 2+ 03/06/24 03/06/24 16:20 18:48 WBC RBC Hgb Hct MCV MCH MCHC RDW Std Deviation RDW Coeff of Jaylyn Plt Count MPV Immature Gran % (Auto) Neut % (Auto) Lymph % (Auto) [place] % (Auto) Eos % (Auto) Baso % (Auto) Absolute Neuts (auto) Absolute Lymphs (auto) Nucleated RBC % Sodium Potassium Chloride Carbon Dioxide Anion Gap BUN Creatinine Estim Creat Clear Calc Est GFR (MDRD) Af Amer Est GFR (MDRD) Non-Af BUN/Creatinine Ratio Glucose Calcium Magnesium Total Bilirubin AST ALT Alkaline Phosphatase Troponin I High Sens 7 B-Natriuretic Peptide 80.1 Total Protein Albumin Globulin Albumin/Globulin Ratio Lipase TSH Free T4 0.90 Urine Color Urine Clarity Urine pH Ur Specific Industry Urine Protein Urine Glucose (UA) Urine Ketones Urine Occult Blood Urine Nitrite Urine Bilirubin Urine Urobilinogen Ur Leukocyte Esterase Urine RBC Urine WBC Ur Squamous Epith Cells Urine Bacteria Hyaline Casts Urine Mucus Radiography Diagnostic Testing: Clinical Impression(s) from Imaging Studies Chest X-Ray 03/06/24 16:16 IMPRESSION: No radiographic evidence of acute cardiopulmonary disease. Electronically Signed: Osmin Bennett MD at 16:29 EST , Abdomen/Pelvis CT 03/06/24 16:32 IMPRESSION: (NOT LISTED IN ORDER OF SIGNIFICANCE) Large hypodense area in the right lobe of the liver consistent for hemangioma. Rectosigmoid anastomosis. Diverticulosis. Other findings as above. Electronically Signed: Osmin Bennett MD at 17:57 EST , Discharge Plan Triage Chief Complaint: Nausea/Vomiting/Diarrhea ED Provider: Garrison Joshua Dx/Rx/DC Orders Clinical Impression: Nausea & vomiting, Diarrhea, UTI (urinary tract infection), Paroxysmal A-fib Instructions: Urinary Tract Infections in Women, ED About Arrhythmias, ED Diet Vomiting Diarrhea Prescriptions: New cephalexin 500 mg capsule 500 mg PO BID 7 Days Qty: 14 0RF ondansetron 4 mg tablet,disintegrating 4 mg PO Q8H PRN PRN (Reason: Nausea) Qty: 10 0RF No Action fluoxetine 40 mg capsule 40 mg PO DAILY Patient Comments: TAKE 1 CAPSULE BY MOUTH EVERY DAY ondansetron 4 mg tablet,disintegrating 4 mg PO Q8H 5 Days Qty: 15 0RF meclizine 25 mg tablet,chewable 25 mg PO TID PRN (Reason: dizziness) Qty: 30 0RF Stand Alone Forms: ED Work / School Excuse Other Ambulatory Orders: Cardiac Holter Monitor, 48 Hrs (Routine) Timeframe: 2 Days Facility: [facility] - Location: Cardiovascular Services Ordered By: Dr. Garrison Joshua Primary Care Provider: Ayan Rubio Referrals: Uri Forde MD [Med Staff - Active Staff] - 3-5 Days Ayan Rubio MD [Primary Care Provider] - 3-5 Days Activity Restrictions/Additional Instructions: Return back to the ED if symptoms change or worsen. Wear your Holter monitor. Follow-up with your PCP as well as cardiology. Your TSH was low. Follow-up with your primary care physician for repeat lab. Print Language: Amharic Disposition Disposition: Home, Self Care
[2024-03-06] MEDS: Ondansetron 4 MG/2 ML Vial IV (15:28)
[2024-03-06] MEDS: 0.9% Normal Saline (1000mL) 1,000 ML 999 ML IV (15:28)
[2024-03-06 15:36] LABS: Absolute Lymphocyte Count 0.34 X10^3/uL (0.83-4.51); Absolute Neutrophil Count 11.1 X10^3/uL (2.0-7.7); Basophil# 0.05 X10^3/uL; Basophil% 0.4 % (0-1); Eosinophils% 0.8 % (0-5); Hematocrit 47.8 % (37-47); Hemoglobin 15.4 g/dL (12.0-15.0); Lymphocyte # 0.34 X10^3/ul (0.83-4.51); Lymphocyte % 2.8 % (19-41); Mean Corp Hgb Conc 32.2 g/dL (32-36); Mean Corpuscular Hgb 28.5 pg (27.0-32.0); Mean Corpuscular Volume 88.4 fL (81-99); Mean Platelet Vol. 9.2 fl (6.2-12.0); Monocyte# 0.49 X10^3/uL; Monocyte% 4.1 % (0-10); NRBC Flagged by Analyzer 0 % (0-5); Neutrophil # 11.05 X10^3/uL (2.7-7.7); Neutrophil % 91.6 % (47-70); POSITIVE DIFFERENTIAL YES; Platelet Count 259 K/mm3 (150-450); RBC Distribution Width CV 13.2 % (11.6-14.6); Red Blood Count 5.41 M/mm3 (4.2-5.4); White Blood Count 12.1 K/mm3 (4.4-11.0)
[2024-03-06 15:49] LABS: ALB/GLOB Ratio 1.3 RATIO (0.9-2.4); AST(SGOT) 22 U/L (15-37); Alanine Aminotransfer ALT/SGPT 21 U/L (13-56); Albumin, Serum 4.3 g/dL (3.2-5.0); Alkaline Phosphatase 90 U/L (45-117); Anion Gap 9 (5-15); BUN 17 mg/dL (7-18); Calcium,Total 9.6 mg/dL (8.5-10.1); Chloride 106 mmol/L (98-107); Creatinine, Serum 1.06 mg/dL (0.55-1.02); EST Glomerular Filtration Rate 55 mL/min (>60); Est Glom Filt Rate - Afr Amer 67 mL/min (>60); Estimated Creatinine Clearance 56.51 ml/min; Globulin 3.4 g/dL (2.2-4.2); Glucose 190 mg/dL (74-106); Lipase 38 U/L (13-75); Potassium 3.5 mmol/L (3.5-5.1); Protein, Total 7.7 g/dL (6.4-8.2); Sodium Level 141 mmol/L (136-145)
--- NOTE | 2024-03-06 16:07 | EKG12_ITS ---
Test Reason : REPEAT Blood Pressure : */* mmHG Vent. Rate : 76 BPM Atrial Rate : 76 BPM P-R Int : 198 ms QRS Dur : 78 ms QT Int : 402 ms P-R-T Axes : 52 36 72 degrees QTcB Int : 452 ms Normal sinus rhythm Normal ECG Confirmed by VANESA ANDUJAR, IVANNA ([id number]), technical writer and editor POLLY MARADIAGA ([id number]) on 03/07/2024 8:25:06 AM Referred By: Confirmed By: IVANNA ALEXIS MD
[2024-03-06 16:14] LABS: Color, Urine Yellow (Yellow); Glucose, Dipstick 50 mg/dl (Normal); Leukocyte Esterase-Dipstick Negative /ul (Negative); Nitrite-Dipstick Negative (Negative); Occult Blood-Urine 150 /ul (Negative); Protein-Dipstick 30 mg/dl (Negative); Urine Bilirubin Dipstick Negative (Negative); Urine Clarity Clear (Clear); Urine Urobilinogen Normal (Normal)
--- NOTE | 2024-03-06 16:16 | RAD_ITS ---
EXAM: XR CHEST, 1 VIEW CLINICAL INDICATION: Arrhythmia TECHNIQUE: Frontal view of the chest. COMPARISON: 03.08.22 FINDINGS: LUNGS AND PLEURAL SPACES: Unremarkable. No consolidation or edema. No pneumothorax. No effusion. HEART: Unremarkable. Cardiac silhouette not enlarged. MEDIASTINUM: Central airways and mediastinal contour are unremarkable. BONES/JOINTS: Unremarkable. No acute fracture. SOFT TISSUES: Unremarkable. RAD/Chest 1 View (Portable) IMPRESSION: No radiographic evidence of acute cardiopulmonary disease. Electronically Signed: Osmin Bennett MD at 16:29 EST ,
[2024-03-06 16:23] LABS: Ketone-Dipstick 150 mg/dl (Negative)
[2024-03-06 16:26] LABS: Bacteria 1+ /hpf (None Seen); Hyaline Cast 0-5 SEEN /lpf (0-5); Mucous, Urine 2+ /hpf (<or=2+); Red Blood Cells-Urine 50-100 SEEN /hpf (0-5); Squamous Epithelial Cells - UA 0-5 SEEN /hpf (5-10); White Blood Cells 0-5 SEEN /hpf (0-5)
--- NOTE | 2024-03-06 16:32 | CT_ITS ---
STUDY: CT Abdomen And Pelvis W/O Contrast Injection 03/06/2024 5:41 PM REASON FOR EXAM: Female, 63 years old. Abdominal pain Nausea, vomiting, hematuria Individualized dose optimization techniques were used for this CT. COMPARISON: 05.09.21. TECHNIQUE: CT Abdomen And Pelvis W/O Contrast Injection FINDINGS: The visualized portions of the heart are within normal limits. Large hypodense area in the right lobe of the liver consistent for hemangioma. Normal gallbladder and extrahepatic biliary system. Normal spleen. Normal pancreas. Normal bilateral adrenal glands. No acute findings of the right kidney. Cortical scarring of the left kidney. Normal visualized stomach. Normal small intestine. Rectosigmoid anastomosis. Diverticulosis. There is non-visualization of the appendix. No acute findings of the abdominal aorta. Normal inferior vena cava. Subcentimeter mesenteric lymph nodes. Normal urinary bladder. There is absence of the uterus consistent with a prior hysterectomy. Normal abdominal wall. Normal osseous structures. CT/Abdomen/Pelvis without Cont IMPRESSION: (NOT LISTED IN ORDER OF SIGNIFICANCE) Large hypodense area in the right lobe of the liver consistent for hemangioma. Rectosigmoid anastomosis. Diverticulosis. Other findings as above. Electronically Signed: Osmin Bennett MD at 17:57 EST ,
--- NOTE | 2024-03-06 16:36 | EKG12_ITS ---
Test Reason : GENERAL Blood Pressure : */* mmHG Vent. Rate : 120 BPM Atrial Rate : * BPM P-R Int : * ms QRS Dur : 82 ms QT Int : 288 ms P-R-T Axes : * 54 249 degrees QTcB Int : 407 ms Atrial fibrillation with rapid ventricular response ST & T wave abnormality, consider lateral ischemia Abnormal ECG Confirmed by VANESA ANDUJAR, IVANNA ([id number]), editorial manager POLLY MARADIAGA ([id number]) on 03/07/2024 8:24:49 AM Referred By: Confirmed By: IVANNA ALEXIS MD
[2024-03-06 17:00] VITALS: BP 134/68; PULSE 83; RESP 16; O2SAT 98
[2024-03-06 17:02] LABS: Magnesium 2.1 mg/dL (1.6-2.6); Thyroid Stim Hormone (TSH) 0.352 uIU/mL (0.358-3.740); Troponin-I HS (w/2H Reflex) 4 pg/mL (3.0-54.0)
[2024-03-06 17:03] LABS: BNP,B-Type NATRIURETIC PEPTIDE 80.1 pg/mL (0-100)
[2024-03-06] MEDS: Ceftriaxone 1 GM/50 ML BAG IV (17:16)
[2024-03-06 18:40] LABS: Reflex Troponin-HS? (from REC) Y
[2024-03-06 19:11] LABS: Troponin-I HS 7 pg/mL (3.0-54.0)
[2024-03-06 19:16] VITALS: BP 132/81; PULSE 86; RESP 17; TEMP 36.9; O2SAT 97
== END 2024-03-06 19:23 | disposition home or self-care (01) ==
PROVIDERS: Emergency Provider Surgery; PCP Family Medicine; Visit Provider Surgery
DX: R11.2 Nausea with vomiting, unspecified (principal); I48.0 Paroxysmal atrial fibrillation; N39.0 Urinary tract infection, site not specified; R19.7 Diarrhea, unspecified; I10 Essential (primary) hypertension; E86.0 Dehydration; Z90.710 Acquired absence of both cervix and uterus; R50.9 Fever, unspecified; F32.A Depression, unspecified; Z79.899 Other long term (current) drug therapy; Z90.49 Acquired absence of other specified parts of digestive tract; D18.03 Hemangioma of intra-abdominal structures; R94.6 Abnormal results of thyroid function studies
CPT/HCPCS: 71045; 74176; 80053; 81001; 83690; 83735; 83880; 84439; 84443; 84484; 85025; 87086; 87631; 93005; 96361; 96365; 96366; 96375; 99283; A4216; J2405

== ENCOUNTER → 2024-03-06 | Outpatient (CLI) | payer OTHER, SELFPAY | END | disposition home or self-care (01) | LOC: CVS 18:28 | PROVIDERS: PCP Family Medicine; Visit Provider Surgery | DX: I48.91 Unspecified atrial fibrillation (principal) | CPT/HCPCS: 93225; 93226 ==

== ENCOUNTER → 2024-05-03 | Outpatient (CLI) | payer OTHER, SELFPAY ==
--- NOTE | 2024-05-03 11:28 | BI_ITS ---
PROCEDURE: SCRN MAMM (CAD)W/IBRAHIMA BILAT REASON FOR EXAM: F, Age 63 y/o, no family history. Routine mammographic follow-up. TECHNIQUE: Bilateral screening digital breast tomosynthesis with 2D and 3D images. Computer aided detection. COMPARISON: Prior exam(s) dating back to March 11, 2023.. FINDINGS: The breasts are heterogeneously dense which may obscure small masses. Stable examination. No suspicious masses, areas of developing architectural distortion, or suspicious calcifications. BI/SCRN MAMM (CAD)W/IBRAHIMA BILAT IMPRESSION: BI-RADS 1: NEGATIVE. RECOMMEND ANNUAL MAMMOGRAPHIC SCREENING. Follow-up code: Routine Follow-up The patient will be notified of the results by letter. Reading Location: [place] [id number]
== END | disposition home or self-care (01) ==
LOC: OPBI 11:28
PROVIDERS: PCP Family Medicine; Referring Provider Obstetrics & Gynecology; Visit Provider Obstetrics & Gynecology
DX: Z12.31 Encounter for screening mammogram for malignant neoplasm of breast (principal)
CPT/HCPCS: 77063; 77067